=== PATIENT | male | born 1945 | race Caucasian/White ===

== ENCOUNTER 2019-01-08 16:41 | Emergency (ER) | payer MEDICARE, BC ==
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
[2019-01-08] MEDS ORDERED: IBUPROFEN 400 MG TAB PO STA (18:43)
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
[2019-01-08 20:27] VITALS: BP 146/84; PULSE 78; RESP 18; TEMP 97.9
== END 2019-01-08 20:27 | disposition home or self-care (01) ==
LOC: EC 16:41
DX: Z04.1 Encounter for examination and observation following transport accident (principal); M54.5 Low back pain; E11.9 Type 2 diabetes mellitus without complications; Z79.4 Long term (current) use of insulin; Z88.0 Allergy status to penicillin
CPT/HCPCS: 72114; 72131; 99284

== ENCOUNTER 2019-01-21 16:18 | Emergency (ER) | payer OTHER, MEDICARE, BC ==
[2019-01-21 17:35] VITALS: RESP 18
[2019-01-21 18:26] LABS: Basophils % (A) 1 %; Eosinophils # (A) 0.1 k/uL (0-0.7); Eosinophils % (A) 3 %; HCT 42.7 % (39.0-53.0); HGB 13.8 gm/dL (13.0-17.5); Lymphocytes # (A) 1.4 k/uL (1.0-4.8); Lymphocytes % (A) 29 %; MCHC 32.4 g/dL (31.0-37.0); MCV 92.8 fL (80.0-100.0); Mean Platelet Volume 7.5; Monocytes # (A) 0.4 k/uL (0-1.0); Monocytes % (A) 8 %; Neutrophils # (A) 2.8 k/uL (1.3-7.7); Neutrophils % (A) 58 %; Platelet Count 176 k/uL (150-450); WBC 4.8 k/uL (3.8-10.6)
[2019-01-21 18:31] LABS: Albumin 3.9 g/dL (3.5-5.0); Calcium 9.3 mg/dL (8.4-10.2); Potassium 4.1 mmol/L (3.5-5.1); Total Bilirubin 0.6 mg/dL (0.2-1.3); Total Protein 6.4 g/dL (6.3-8.2)
[2019-01-21 18:42] LABS: INR 0.9 (<1.2); Partial Thromboplastin Time 25.9 sec (22.0-30.0); Prothrombin Time 9.9 sec (9.0-12.0)
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
[2019-01-21 21:52] LABS: Appearance,Urine Clear (Clear); Bilirubin,Urine Negative (Negative); Blood,Urine Negative (Negative); Color,Urine Colorless; Glucose,Urine (UA) 1+ (Negative); Ketones,Urine Negative (Negative); Leukocyte Esterase,Urine Negative (Negative); Nitrite,Urine Negative (Negative); PH, Urine 7.5 (5.0-8.0); Protein,Urine Negative (Negative); Specific Gravity,Urine 1.005 (1.001-1.035); Urobilinogen,Urine <2.0 mg/dL (<2.0)
[2019-01-21 22:06] VITALS: BP 144/92; PULSE 72; TEMP 98.7
== END 2019-01-21 22:06 | disposition home or self-care (01) ==
LOC: EC 16:18
DX: R20.2 Paresthesia of skin (principal); M54.5 Low back pain; E11.9 Type 2 diabetes mellitus without complications; Z79.4 Long term (current) use of insulin; Z79.899 Other long term (current) drug therapy; Z88.0 Allergy status to penicillin
CPT/HCPCS: 36415; 70450; 80053; 81003; 83735; 84443; 84484; 85025; 85610; 85730; 93005; 99284

== ENCOUNTER 2019-02-16 09:19 | Emergency (ER) | payer MEDICARE, BC ==
[2019-02-16 09:37] VITALS: RESP 16
--- NOTE | 2019-02-16 09:47 | ED ---
General Adult HPI - General Chief complaint: Recheck/Abnormal Lab/Rx Stated complaint: hypoglycemia Time Seen by Provider: 02/16/19 09:21 Source: patient, EMS, RN notes reviewed Mode of arrival: EMS Limitations: no limitations - History of Present Illness Initial comments: Patient is a pleasant 73-year-old male presenting to the emergency department with hypoglycemia. Onset of symptoms was this morning. Patient has not yet ate anything today. Blood sugar was down to the 40s and patient was confused. EMS provided D50 with repeat blood sugar around 250. Symptoms have resolved. Patient feels fine at this time and has no complaints. No injury. - Related Data Home Medications Medication Instructions Recorded Confirmed Bimatoprost [Lumigan .01% Ophth 1 drop BOTH EYES HS 01/08/19 02/16/19 Soln] Brimonidine Tartrate/Timolol 1 drop BOTH EYES BID 01/08/19 02/16/19 [Combigan 0.2%-0.5% Eye Drops] Dulaglutide [Trulicity] 0.75 mg SQ CASTRO 01/08/19 02/16/19 Insulin Aspart [NovoLOG Flexpen] 14 units SQ AC-SUPPER 01/08/19 02/16/19 Insulin Aspart [Novolog Flexpen] 10 unit SQ AC-BID 01/08/19 02/16/19 Ascorbic Acid [Vitamin C] 500 mg PO DAILY 01/21/19 02/16/19 Cholecalciferol [Vitamin D3 (25 1,000 unit PO DAILY 01/21/19 02/16/19 Mcg = 1000 Iu)] Cinnamon Bark [Cinnamon] 500 mg PO DAILY 01/21/19 02/16/19 Multivitamins, Thera [Multivitamin 1 tab PO DAILY 01/21/19 02/16/19 (formulary)] Naproxen 500 mg PO BID PRN 01/21/19 02/16/19 Zinc 50 mg PO DAILY 01/21/19 02/16/19 Allergies Allergy/AdvReac Type Severity Reaction Status Date / Time Penicillins AdvReac Nausea & Verified 02/16/19 09:35 Vomiting Review of Systems ROS Statement: Those systems with pertinent positive or pertinent negative responses have been documented in the HPI. ROS Other: All systems not noted in ROS Statement are negative. Constitutional: Denies: fever Eyes: Denies: eye pain ENT: Denies: ear pain Respiratory: Denies: cough Cardiovascular: Denies: chest pain Endocrine: Denies: fatigue Gastrointestinal: Denies: abdominal pain Genitourinary: Denies: dysuria Musculoskeletal: Denies: back pain Skin: Denies: rash Neurological: Reports: as per HPI. Denies: headache Past Medical History Past Medical History: Diabetes Mellitus History of Any Multi-Drug Resistant Organisms: None Reported Past Surgical History: Orthopedic Surgery Past Psychological History: No Psychological Hx Reported Smoking Status: Never smoker Past Alcohol Use History: None Reported Past Drug Use History: None Reported General Exam Limitations: no limitations General appearance: alert, in no apparent distress Head exam: Present: atraumatic, normocephalic Eye exam: Present: normal appearance, EOMI, other (Right pupil slightly dilated which patient states is chronic and unchanged.). Absent: nystagmus ENT exam: Present: normal oropharynx Neck exam: Absent: tenderness Respiratory exam: Present: normal lung sounds bilaterally Cardiovascular Exam: Present: regular rate, normal rhythm GI/Abdominal exam: Present: soft. Absent: tenderness Extremities exam: Present: normal inspection. Absent: pedal edema, calf tenderness Neurological exam: Present: alert, oriented X3, CN II-XII intact. Absent: motor sensory deficit Expanded Neurological exam: Present: protecting the airway Patient oriented to: Present: person, place, time Speech: Present: fluid speech Motor strength exam: RUE: 5, LUE: 5, RLE: 5, LLE: 5 Eye Response: (4) open spontaneously Motor Response: (6) obeys commands Verbal Response: (5) oriented Psychiatric exam: Present: normal affect, normal mood Skin exam: Present: normal color Course Vital Signs 02/16/19 02/16/19 09:28 09:41 Pulse Rate 73 73 Respiratory 16 16 Rate Blood Pressure 158/90 158/90 O2 Sat by Pulse 97 97 Oximetry Medical Decision Making - Medical Decision Making Patient reevaluated and resting comfortably in bed. Patient and updated on results and plan. Patient is symptom-free at this time and acting appropriately. Patient did tolerate a meal. Patient states he did take insulin around 2 AM and missed breakfast this morning. Patient states this is exactly what happened last time his blood sugar dropped as well. Patient is advised to check his blood sugar frequently and do close follow-ups primary care physician. - Lab Data Lab Results 06/23/19 Range/Units 10:21 POC Glucose (mg/dL) 185 H (75-99) mg/dL POC Glu Diagnostic Technologist ID Vicki Guillermo Disposition Clinical Impression: Hypoglycemic episode in patient with diabetes mellitus Disposition: HOME SELF-CARE Condition: Stable Instructions (If sedation given, give patient instructions): Hypoglycemia in a Person with Diabetes (ED) Additional Instructions: Please follow-up with primary care physician in the beginning of the week. Please check your blood sugar frequently today and tomorrow, at least 4 times daily. Return for low blood sugar, weakness or confusion, worsening symptoms or other concerns. Is patient prescribed a controlled substance at d/c from ED?: No Referrals: Guillermo Alfaro MD [Primary Care Provider] - 1-2 days Time of Disposition: 11:26
[2019-02-16 10:24] LABS: Glucose,Whole Blood 185 mg/dL (75-99)
[2019-02-16 12:27] LABS: Glucose,Whole Blood 243 mg/dL (75-99)
[2019-02-16 12:34] VITALS: BP 144/87; PULSE 78
== END 2019-02-16 12:25 | disposition home or self-care (01) ==
LOC: EC 09:19
DX: E11.649 Type 2 diabetes mellitus with hypoglycemia without coma (principal); Z79.4 Long term (current) use of insulin; Z79.899 Other long term (current) drug therapy; Z88.0 Allergy status to penicillin
CPT/HCPCS: 36415; 99284

== ENCOUNTER 2023-11-03 12:29 | Emergency (ER) | payer BC, MEDICARE, OTHER ==
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
[2023-11-03] MEDS: DIPH,PERTUS(ACELL)TETVAC-LF 0.5 ML VIAL IM ONE (12:43)
[2023-11-03] MEDS: HYDROmorphone 0.5 MG/0.5 ML SYRINGE IVP STA ×2 (12:43→15:06)
[2023-11-03 12:48] VITALS: RESP 18; TEMP 96.2
[2023-11-03 13:02] LABS: Basophils % (A) 1 %; Eosinophils # (A) 0.1 k/uL (0-0.7); Eosinophils % (A) 2 %; HCT 38.1 % (39.0-53.0); HGB 12.5 gm/dL (13.0-17.5); Lymphocytes % (A) 15 %; MCH 30.9 pg (25.0-35.0); MCV 93.8 fL (80.0-100.0); Mean Platelet Volume 7.6; Monocytes # (A) 0.5 k/uL (0-1.0); Monocytes % (A) 7 %; Neutrophils # (A) 5.1 k/uL (1.3-7.7); Neutrophils % (A) 75 %; Platelet Count 177 k/uL (150-450); RBC 4.06 m/uL (4.30-5.90); RDW 13.4 % (11.5-15.5); WBC 6.8 k/uL (3.8-10.6)
[2023-11-03 13:07] LABS: ALT 26 U/L (4-49); AST 37 U/L (17-59); African American GFR (CKD) 87 (>60 ml/min/1.73 sqM); Albumin 3.5 g/dL (3.5-5.0); Alcohol <10 mg/dL; Alkaline Phosphatase 90 U/L (38-126); Anion Gap 4 mmol/L; Blood Urea Nitrogen 34 mg/dL (9-20); Calcium 8.7 mg/dL (8.4-10.2); Carbon Dioxide 26 mmol/L (22-30); Chloride 110 mmol/L (98-107); Glucose 232 mg/dL (74-99); Non-African American GFR(CKD) 76 (>60 ml/min/1.73 sqM); Potassium 5.3 mmol/L (3.5-5.1); Sodium 140 mmol/L (137-145); Total Bilirubin 0.7 mg/dL (0.2-1.3)
[2023-11-03 13:13] LABS: Prothrombin Time 10.6 sec (10.0-12.5)
[2023-11-03] MEDS: KETOROLAC 15 MG/ML 1 ML VIAL IVP STA (14:03)
[2023-11-03 14:04] LABS: Partial Thromboplastin Time 20.1 sec (22.0-30.0)
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
[2023-11-03] MEDS: ACET/COD 300 MG/30 MG STARTER PACK 6 TAB BTL PO STA (15:04)
[2023-11-03] MEDS: hydrALAZINE HCL 20 MG/ML 1 ML VIAL IVP STA (15:07)
[2023-11-03] MEDS: amLODIPine 5 MG TAB PO STA (15:58)
[2023-11-03 16:24] VITALS: BP 169/90; PULSE 74
== END 2023-11-03 16:13 | disposition home or self-care (01) ==
LOC: EC 12:29
DX: S20.211A Contusion of right front wall of thorax, initial encounter (principal); I10 Essential (primary) hypertension; E11.9 Type 2 diabetes mellitus without complications; I25.2 Old myocardial infarction; Z79.4 Long term (current) use of insulin; Z88.0 Allergy status to penicillin; V89.2XXA Person injured in unspecified motor-vehicle accident, traffic, initial encounter; Y92.410 Unspecified street and highway as the place of occurrence of the external cause
CPT/HCPCS: 36415; 93005; 80053; 84484; 85025; 85610; 85730; 80320; 72125; 70450; 71260; 74177; 90715; 99285; 96374; 96375 ×2; 90471; J0360; J1885; J1170; Q9967

== ENCOUNTER 2023-11-04 11:43 | Observation (INO) | payer OTHER, MEDICARE, BC ==
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
[2023-11-04] MEDS: KETOROLAC 15 MG/ML 1 ML VIAL IVP STA (11:53)
[2023-11-04] MEDS: HYDROmorphone 0.5 MG/0.5 ML SYRINGE IVP STA (11:54)
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
[2023-11-04 13:05] LABS: Basophils % (A) 0 %; Eosinophils # (A) 0.1 k/uL (0-0.7); Eosinophils % (A) 1 %; HCT 34.9 % (39.0-53.0); HGB 11.7 gm/dL (13.0-17.5); Lymphocytes # (A) 0.9 k/uL (1.0-4.8); Lymphocytes % (A) 11 %; MCH 31.3 pg (25.0-35.0); MCHC 33.6 g/dL (31.0-37.0); MCV 93.3 fL (80.0-100.0); Mean Platelet Volume 7.6; Monocytes # (A) 0.7 k/uL (0-1.0); Monocytes % (A) 9 %; Neutrophils # (A) 6.1 k/uL (1.3-7.7); Neutrophils % (A) 77 %; Platelet Count 168 k/uL (150-450); RBC 3.74 m/uL (4.30-5.90); RDW 13.5 % (11.5-15.5); WBC 7.9 k/uL (3.8-10.6)
[2023-11-04 14:05] LABS: ALT 22 U/L (4-49); AST 29 U/L (17-59); African American GFR (CKD) >90 (>60 ml/min/1.73 sqM); Albumin 3.2 g/dL (3.5-5.0); Alkaline Phosphatase 82 U/L (38-126); Anion Gap 6 mmol/L; Blood Urea Nitrogen 29 mg/dL (9-20); Calcium 8.3 mg/dL (8.4-10.2); Carbon Dioxide 24 mmol/L (22-30); Chloride 106 mmol/L (98-107); Glucose 250 mg/dL (74-99); Non-African American GFR(CKD) 82 (>60 ml/min/1.73 sqM); Potassium 4.2 mmol/L (3.5-5.1); Sodium 136 mmol/L (137-145); Total Bilirubin 0.6 mg/dL (0.2-1.3); Total Protein 5.6 g/dL (6.3-8.2)
[2023-11-04] MEDS: SODIUM CHLORIDE 0.9% 1,000 ML IV ONE (14:27)
[2023-11-04] MEDS: KETOROLAC 15 MG/ML 1 ML VIAL IVP SCH (19:05)
[2023-11-04 20:08] LABS: Glucose,Whole Blood 327 mg/dL (70-110)
[2023-11-04] MEDS ORDERED: HYDROmorphone 1 MG/ML 1 ML SYRINGE IM PRN (20:25)
[2023-11-04] MEDS: INSULIN ASPART (NovoLOG) 100 UNIT/ML VIAL SQ SCH (23:41)
[2023-11-05] MEDS: HYDROmorphone 0.5 MG/0.5 ML SYRINGE IVP PRN (05:00)
[2023-11-05 05:51] LABS: Glucose,Whole Blood 98 mg/dL (70-110)
[2023-11-05] MEDS ORDERED: HYDROcodone/APAP 5-325MG 1 EACH TAB PO PRN (08:02)
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
[2023-11-05] MEDS: DORZOLAMIDE-TIMOLOL 2.23%/0.68 10ML BTL BOTH EYES SCH (09:18)
[2023-11-05] MEDS: lisinopriL 5 MG TAB PO SCH (09:18)
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
--- NOTE | 2023-11-05 11:09 | CA ---
Transthoracic Echo Report Name: Shin Still Age: 77 Gender: M : 1945 Exam Date: 11/05/2023 07:17 Exam Location: [facility] Ht (in): 70 Wt (lb): 160 Ordering Physician: Flory Lugo Attending/Referring Phys: [id number], [employer] Spot [employer] Jackie Huitron RDCS Procedure CPT: Indications: rule out pericardial effusion, hematoma Cardiac Hx: Technical Quality: Good Contrast 1: Total Dose (mL): Contrast 2: Total Dose (mL): MEASUREMENTS (Male / Female) Normal Values 2D ECHO LV Diastolic Diameter PLAX 4.7 cm 4.2 - 5.9 / 3.9 - 5.3 cm LV Systolic Diameter PLAX 2.8 cm IVS Diastolic Thickness 1.1 cm 0.6 - 1.0 / 0.6 - 0.9 cm LVPW Diastolic Thickness 1.1 cm 0.6 - 1.0 / 0.6 - 0.9 cm LV Relative Wall Thickness 0.5 RV Internal Dim ED PLAX 2.9 cm LA Systolic Diameter LX 3.7 cm 3.0 - 4.0 / 2.7 - 3.8 cm LV Diastolic Volume MOD 4C 113.5 cm??? LV Systolic Volume MOD 4C 48.4 cm??? LV Ejection Fraction MOD 4C 57.3 % LV Cardiac Index MOD 4C 3092.3 cm???/min???m??? LV Diastolic Length 4C 8.5 cm LV Systolic Length 4C 7.3 cm LV Diastolic Volume MOD 2C 105.6 cm??? LV Systolic Volume MOD 2C 50.4 cm??? LV Ejection Fraction MOD 2C 52.2 % LV Cardiac Index MOD 2C 2619.7 cm???/min???m??? LV Diastolic Length 2C 8.8 cm LV Systolic Length 2C 7.5 cm LA Volume 41.6 cm??? 18 - 58 / 22 - 52 cm??? LA Volume Index 21.9 cm???/m??? 16 - 28 cm???/m??? M-MODE Aortic Root Diameter MM 4.3 cm AV Cusp Separation MM 2.7 cm DOPPLER AV Peak Velocity 112.2 cm/s AV Peak Gradient 5.0 mmHg MV Area PHT 2.8 cm??? Mitral E Point Velocity 63.2 cm/s Mitral A Point Velocity 113.8 cm/s Mitral E to A Ratio 0.6 MV Deceleration Time 275.0 ms FINDINGS Left Ventricle Left ventricular ejection fraction is estimated at .65-70% Left ventricular cavity size normal. Left ventricular wall thickness normal. Normal left ventricular wall motion. Right Ventricle Normal right ventricular size. Unable to estimate the right ventricular systolic pressure. Right Atrium Normal right atrial size. Left Atrium Normal left atrial size. Mitral Valve Structurally normal mitral valve. No mitral stenosis, regurgitation or prolapse. Aortic Valve Trileaflet aortic valve. No aortic valve stenosis or regurgitation. Tricuspid Valve Structurally normal tricuspid valve. No tricuspid stenosis, regurgitation or prolapse. Pulmonic Valve Pulmonic valve not well visualized. No pulmonic regurgitation. Pericardium No pericardial effusion. Aorta Moderate aortic dilatation at the level of the sinuses of valsalva 43 mm CONCLUSIONS Hyperdynamic left ventricle with an EF between 65-70% and almost cavity obliteration Significant valvular abnormalities noted No pericardial effusion Unable to determine the RV systolic pressure Previewed by: Dr. Joseph Villanueva MD (Electronically Signed) Final Date: 05 November 2023 11:08
[2023-11-05 11:15] LABS: Glucose,Whole Blood 340 mg/dL (70-110)
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
[2023-11-05] MEDS: FAMOTIDINE 20 MG TAB PO SCH (12:26)
[2023-11-05] MEDS: HEPARIN SODIUM,PORCINE 5,000 UNIT/ML 1 ML VIAL SQ SCH (12:26)
[2023-11-05 16:09] LABS: Glucose,Whole Blood 108 mg/dL (70-110)
[2023-11-05 19:24] LABS: Glucose,Whole Blood 274 mg/dL (70-110)
[2023-11-05 21:07] LABS: Glucose,Whole Blood 279 mg/dL (70-110)
[2023-11-05] MEDS: ATORVASTATIN 20 MG TAB PO SCH (21:07)
[2023-11-05] MEDS: LATANOPROST 0.005% OPHTH DROPS 2.5 ML BTL BOTH EYES SCH (22:14)
[2023-11-05] MEDS ORDERED: INSULIN ASPART (NovoLOG) 100 UNIT/ML VIAL SQ SCH (22:24)
[2023-11-06 05:25] LABS: Glucose,Whole Blood 113 mg/dL (70-110)
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
[2023-11-06 08:10] VITALS: BP 155/78; PULSE 80; RESP 18; TEMP 98.3
[2023-11-06] MEDS: INSULIN DETEMIR (LEVEMIR) 100 UNIT/ML SYR SQ SCH (09:32)
[2023-11-06 11:21] LABS: Glucose,Whole Blood 180 mg/dL (70-110)
[2023-11-06] MEDS ORDERED: KETOROLAC 15 MG/ML 1 ML VIAL IVP PRN (11:33)
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
[2023-11-06] MEDS: LIDOCAINE 4% PATCH TOPICAL SCH (12:54)
[2023-11-06 16:29] LABS: Glucose,Whole Blood 121 mg/dL (70-110)
== END 2023-11-06 18:01 | disposition home or self-care (01) ==
LOC: EC 11:43 → 4SSUR 14:07
PROVIDERS: ADMIT Surgery; ATTEND Surgery
DX: S22.22XA Fracture of body of sternum, initial encounter for closed fracture (principal); S32.019A Unspecified fracture of first lumbar vertebra, initial encounter for closed fracture; S32.029A Unspecified fracture of second lumbar vertebra, initial encounter for closed fracture; S32.039A Unspecified fracture of third lumbar vertebra, initial encounter for closed fracture; S32.049A Unspecified fracture of fourth lumbar vertebra, initial encounter for closed fracture; V43.52XA Car driver injured in collision with other type car in traffic accident, initial encounter; E11.9 Type 2 diabetes mellitus without complications; I10 Essential (primary) hypertension; E78.5 Hyperlipidemia, unspecified; Z79.899 Other long term (current) drug therapy; Z79.4 Long term (current) use of insulin; Z79.84 Long term (current) use of oral hypoglycemic drugs; Z88.0 Allergy status to penicillin
CPT/HCPCS: 96376 ×3; 96372 ×2; 96361; 96374; 96375; 99285; 36415; 93005; 93306; 97162; 97166; 80053; 84484; 85025; 71101; 71120; G0378 ×3; G0390; J1644 ×2; J1885 ×3; J1170 ×2

== ENCOUNTER → 2023-12-18 | Outpatient (CLI) | payer OTHER, MEDICARE, BC ==
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
== END | disposition home or self-care (01) ==
LOC: RADXRMAIN 12:17
PROVIDERS: ATTEND Family Medicine
DX: S22.22XA Fracture of body of sternum, initial encounter for closed fracture (principal); S39.92XD Unspecified injury of lower back, subsequent encounter
CPT/HCPCS: 71120; 72100

== ENCOUNTER 2024-02-12 02:00 | Emergency (ER) | payer BC, OTHER ==
[2024-02-12 02:08] VITALS: TEMP 98.3
[2024-02-12 02:25] LABS: Glucose,Whole Blood 510 mg/dL (70-110)
[2024-02-12] MEDS: ACETAMINOPHEN TAB 500 MG TAB PO STA (02:37)
[2024-02-12] MEDS: SODIUM CHLORIDE 0.9% 1,000 ML IV ONE (02:40)
[2024-02-12 02:52] LABS: VBG PH 7.48 (7.31-7.41)
[2024-02-12 03:03] LABS: Basophils % (A) 0 %; Eosinophils # (A) 0.1 k/uL (0-0.7); Eosinophils % (A) 2 %; HCT 37.7 % (39.0-53.0); HGB 11.7 gm/dL (13.0-17.5); Lymphocytes # (A) 0.8 k/uL (1.0-4.8); Lymphocytes % (A) 17 %; MCH 29.8 pg (25.0-35.0); MCHC 31.1 g/dL (31.0-37.0); MCV 95.6 fL (80.0-100.0); Mean Platelet Volume 8.1; Monocytes # (A) 0.4 k/uL (0-1.0); Monocytes % (A) 8 %; Neutrophils # (A) 3.3 k/uL (1.3-7.7); Neutrophils % (A) 70 %; Platelet Count 186 k/uL (150-450); RBC 3.95 m/uL (4.30-5.90); RDW 12.9 % (11.5-15.5); WBC 4.8 k/uL (3.8-10.6)
[2024-02-12 03:09] LABS: INR 0.9 (<1.2); Partial Thromboplastin Time 21.9 sec (22.0-30.0)
[2024-02-12 03:30] LABS: ALT 17 U/L (4-49); AST 19 U/L (17-59); African American GFR (CKD) 90 (>60 ml/min/1.73 sqM); Albumin 3.4 g/dL (3.5-5.0); Alkaline Phosphatase 189 U/L (38-126); Anion Gap 5 mmol/L; Blood Urea Nitrogen 28 mg/dL (9-20); Calcium 8.6 mg/dL (8.4-10.2); Carbon Dioxide 24 mmol/L (22-30); Chloride 105 mmol/L (98-107); Non-African American GFR(CKD) 78 (>60 ml/min/1.73 sqM); Potassium 4.6 mmol/L (3.5-5.1); Sodium 134 mmol/L (137-145); Total Bilirubin 0.4 mg/dL (0.2-1.3); Total Protein 5.8 g/dL (6.3-8.2)
[2024-02-12 03:41] LABS: Glucose 528 mg/dL (74-99)
--- NOTE | 2024-02-12 03:42 | ED ---
General Adult HPI - General Chief complaint: Fall Stated complaint: fall Time Seen by Provider: 02/12/24 02:15 Source: patient, EMS, RN notes reviewed, old records reviewed Mode of arrival: EMS Limitations: no limitations - History of Present Illness Initial comments: Is a 78-year-old male presents emergency department after a fall. States he awoke this morning and stood up too quickly as he does have a history of orthostatic hypotension. States he felt lightheaded and fell onto the ground. Landed on his right side. Complaining of right knee and right shoulder pain. Denies hitting his head. Denies loss consciousness. Is not on blood thinners. Patient does have a history of diabetes. States he is compliant with medications. Patient was found to be hyperglycemic. Presents for further evaluation at this time. Denies any abdominal pain, chest pain, shortness of breath. No other obvious injuries. - Related Data Home Medications Medication Instructions Recorded Confirmed Ammonium Lactate Lotion 1 applic TOPICAL DAILY PRN 11/04/23 11/04/23 [Lac-Hydrin 12% Lotion] Atorvastatin [Lipitor] 20 mg PO HS 11/04/23 11/04/23 Dorzolamide-Timol 2.23%/0.68% 1 drop BOTH EYES BID 11/04/23 11/04/23 [Cosopt] Insulin Degludec [Tresiba 24 units SQ DAILY 11/04/23 11/04/23 Flextouch U-200 Pen] Ketorolac [Toradol] 10 mg PO Q6HR PRN 11/04/23 11/04/23 Latanoprost [Latanoprost 0.005%] 1 drop BOTH EYES HS 11/04/23 11/04/23 lisinopriL [Zestril] 5 mg PO DAILY 11/04/23 11/04/23 metFORMIN HCL [Glucophage] 1,000 mg PO DAILY 11/04/23 11/04/23 Previous Rx's Medication Instructions Recorded Acetaminophen Tab [Tylenol] 1,000 mg PO Q6HR PRN #30 tablet 11/06/23 Lidocaine 5% Patch [Lidoderm] 1 patch TOPICAL DAILY #3 patch 11/06/23 Allergies Allergy/AdvReac Type Severity Reaction Status Date / Time Penicillins AdvReac Nausea & Verified 02/12/24 02:08 Vomiting Review of Systems ROS Statement: Those systems with pertinent positive or pertinent negative responses have been documented in the HPI. Review of Systems: CONST: Denies fever EYES: Denies blurry vision ENT: Denies nasal congestion C/V: Denies Chest pain RESP: Denies shortness of breath GI: Denies abdominal pain : Denies dysuria SKIN: Denies rash. MSK: Endorses right shoulder pain, right knee pain. NEURO: Denies headache ROS Other: All systems not noted in ROS Statement are negative. Past Medical History Past Medical History: Diabetes Mellitus, Hyperlipidemia, Hypertension Additional Past Medical History / Comment(s): R eye blindness (2016) History of Any Multi-Drug Resistant Organisms: None Reported Past Surgical History: Orthopedic Surgery Past Psychological History: No Psychological Hx Reported Smoking Status: Never smoker Past Alcohol Use History: None Reported Past Drug Use History: None Reported General Exam - General Exam Comments Initial Comments: General: Appears in no acute distress. HEAD: Normal with no signs of head trauma. Negative Singh sign. Negative raccoon eyes. EYES: PERRLA, EOMI, conjunctiva normal, no discharge. Pupils are 3 mm and equal bilaterally. ENT: Hearing grossly intact, normal oropharynx. RESPIRATORY: Clear breath sounds bilaterally. No wheezes, rales, or rhonchi. C/V: Regular rate and rhythm. S1 and S2 auscultated, no edema, peripheral pulses 2+ and intact throughout ABD: Abd is soft, nontender, nondistended EXT: Normal range of motion, no obvious deformity. Tenderness to palpation of t he right shoulder as well as right knee. Tenderness with movement of both as well. No obvious deformities. No midline spinal tenderness to palpation. Pelvis is stable. SKIN: No rashes or lesions observed on exposed skin. NEURO: Alert and oriented x 4. Is a 15. Limitations: no limitations Course Vital Signs 02/12/24 02/12/24 02:01 05:09 Temperature 98.3 F Pulse Rate 80 74 Respiratory 16 18 Rate Blood Pressure 172/87 172/87 O2 Sat by Pulse 97 97 Oximetry Medical Decision Making - Medical Decision Making Was pt. sent in by a medical professional or institution (, PA, PHARMACY TECHNICIAN PER DIEM, urgent care, hospital, or retirement...) When possible be specific @ -No Did you speak to anyone other than the patient for history (EMS, parent, family, police, friend...)? What history was obtained from this source @ -No Did you review nursing and triage notes (agree or disagree)? Why? @ -I reviewed and agree with nursing and triage notes Were old charts reviewed (outside hosp., previous admission, EMS record, old EKG, old radiological studies, urgent care reports/EKG's, retirement records)? Report findings @ -No old charts were reviewed Differential Diagnosis (chest pain, altered mental status, abdominal pain women, abdominal pain men, vaginal bleeding, weakness, fever, dyspnea, syncope, headache, dizziness, GI bleed, back pain, seizure, CVA, palpatations, mental health, musculoskeletal)? @ -Differential Musculoskeletal Muscular strain, contusion, ligament sprain, fracture, arthritis, septic arthritis, bursitis, cellulitis, muscle spasm, nerve compression, DVT, arterial occlusion, herpes zoster, electrolyte abnormality, tumor.... This is not meant to be in all inclusive list EKG interpreted by me (3pts min.). @ -As above X-rays interpreted by me (1pt min.). @ -Chest, pelvis, shoulder, knee x-rays negative for any obvious traumatic injury. CT interpreted by me (1pt min.). @ -CT brain negative for any obvious traumatic injury. U/S interpreted by me (1pt. min.). @ -None done What testing was considered but not performed or refused? (CT, X-rays, U/S, labs)? Why? @ -None What meds were considered but not given or refused? Why? @ -None Did you discuss the management of the patient with other professionals (professionals i.e. , PA, PHARMACY TECHNICIAN PER DIEM, lab, RT, psych nurse, social sciences research scientist, wire spinner, teacher, safety security officer, counter caser)? Give summary @ -No Was smoking cessation discussed for >3mins.? @ -No Was critical care preformed (if so, how long)? @ -No Were there social determinants of health that impacted care today? How? (Homelessness, low income, unemployed, alcoholism, drug addiction, transportatio n, low edu. Level, literacy, decrease access to med. care, residential, rehab)? @ -No Was there de-escalation of care discussed even if they declined (Discuss DNR or withdrawal of care, Hospice)? DNR status @ -No What co-morbidities impacted this encounter? (DM, HTN, Smoking, COPD, CAD, Cancer, CVA, ARF, Chemo, Hep., AIDS, mental health diagnosis, sleep apnea, morbid obesity)? @ -None Was patient admitted / discharged? Hospital course, mention meds given and route, prescriptions, significant lab abnormalities, going to OR and other pertinent info. @ -Patient presents after a fall. Seems to be mechanical or orthostatic hypotensive in nature. Currently only symptoms are pain in the right shoulder and right knee. Does not meet trauma activation criteria. Will obtain CT brain due to the patient's age as well as x-rays of the right shoulder, knee, pelvis and chest. Basic labs also be obtained as patient is hyperglycemic. He was in agreement this plan. He will receive a 1 L fluid bolus as well as Tylenol for analgesia. Imaging negative for any obvious traumatic injury. Laboratory studies remarkable for hyperglycemia but no evidence of DKA. On reevaluation, we will readminister insulin at this time. I updated the patient. He was in agreement this plan. He is resting comfortably at this time. Repeat Accu-Chek shows improvement of sugars at 350. I believe it is safe for him to be discharged home. He was in agreement this plan. Remains asymptomatic. He will be given a sling for his right shoulder. I instructed the patient to follow up with their PCP in the next 1-3 days. I explained that the patient should return to the emergency department if they experience any worsening symptoms. Strict return precautions were discussed with the patient. The patient expressed understanding of these instructions. I answered all questions that the patient had. The patient was discharged home in good condition with their prescriptions and follow up information. Undiagnosed new problem with uncertain prognosis? @ -No Drug Therapy requiring intensive monitoring for toxicity (Heparin, Nitro, Insulin, Cardizem)? @ -No Were any procedures done? @ -No Diagnosis/symptom? @ -Fall, hyperglycemia, right shoulder strain, right knee sprain Acute, or Chronic, or Acute on Chronic? @ -Acute Uncomplicated (without systemic symptoms) or Complicated (systemic symptoms)? @ -Uncomplicated Side effects of treatment? @ -None Exacerbation, Progression, or Severe Exacerbation] @ -No Poses a threat to life or bodily function? @ -No - Lab Data Result diagrams: 02/12/24 02:20 02/12/24 02:20 Lab Results 02/12/24 02/12/24 02/12/24 Range/Units 02:13 02:20 02:20 WBC 4.8 (3.8-10.6) k/uL RBC 3.95 L (4.30-5.90) m/uL Hgb 11.7 L (13.0-17.5) gm/dL Hct 37.7 L (39.0-53.0) % MCV 95.6 (80.0-100.0) fL MCH 29.8 (25.0-35.0) pg MCHC 31.1 (31.0-37.0) g/dL RDW 12.9 (11.5-15.5) % Plt Count 186 (150-450) k/uL MPV 8.1 Neutrophils % 70 % Lymphocytes % 17 % Monocytes % 8 % Eosinophils % 2 % Basophils % 0 % Neutrophils # 3.3 (1.3-7.7) k/uL Lymphocytes # 0.8 L (1.0-4.8) k/uL Monocytes # 0.4 (0-1.0) k/uL Eosinophils # 0.1 (0-0.7) k/uL Basophils # 0.0 (0-0.2) k/uL PT 10.0 (10.0-12.5) sec INR 0.9 (<1.2) APTT 21.9 L (22.0-30.0) sec VBG pH (7.31-7.41) VBG pCO2 (37-51) mmHg VBG HCO3 (24-28) mmol/L Sodium (137-145) mmol/L Potassium (3.5-5.1) mmol/L Chloride (98-107) mmol/L Carbon Dioxide (22-30) mmol/L Anion Gap mmol/L BUN (9-20) mg/dL Creatinine (0.66-1.25) mg/dL Est GFR (CKD-EPI)AfAm (>60 ml/min/1.73 sqM) Est GFR (CKD-EPI)NonAf (>60 ml/min/1.73 sqM) Glucose (74-99) mg/dL POC Glucose (mg/dL) 510 H* (70-110) mg/dL POC Glu Cast Iron Drain Pipe Layer ID Nargis, Marianna Calcium (8.4-10.2) mg/dL Total Bilirubin (0.2-1.3) mg/dL AST (17-59) U/L ALT (4-49) U/L Alkaline Phosphatase (38-126) U/L Total Protein (6.3-8.2) g/dL Albumin (3.5-5.0) g/dL Acetone, Qual (Negative) 02/12/24 02/12/24 02/12/24 Range/Units 02:20 02:20 06:05 WBC (3.8-10.6) k/uL RBC (4.30-5.90) m/uL Hgb (13.0-17.5) gm/dL Hct (39.0-53.0) % MCV (80.0-100.0) fL MCH (25.0-35.0) pg MCHC (31.0-37.0) g/dL RDW (11.5-15.5) % Plt Count (150-450) k/uL MPV Neutrophils % % Lymphocytes % % Monocytes % % Eosinophils % % Basophils % % Neutrophils # (1.3-7.7) k/uL Lymphocytes # (1.0-4.8) k/uL Monocytes # (0-1.0) k/uL Eosinophils # (0-0.7) k/uL Basophils # (0-0.2) k/uL PT (10.0-12.5) sec INR (<1.2) APTT (22.0-30.0) sec VBG pH 7.48 H (7.31-7.41) VBG pCO2 31 L (37-51) mmHg VBG HCO3 23 L (24-28) mmol/L Sodium 134 L (137-145) mmol/L Potassium 4.6 (3.5-5.1) mmol/L Chloride 105 (98-107) mmol/L Carbon Dioxide 24 (22-30) mmol/L Anion Gap 5 mmol/L BUN 28 H (9-20) mg/dL Creatinine 0.94 (0.66-1.25) mg/dL Est GFR (CKD-EPI)AfAm 90 (>60 ml/min/1.73 sqM) Est GFR (CKD-EPI)NonAf 78 (>60 ml/min/1.73 sqM) Glucose 528 H* (74-99) mg/dL POC Glucose (mg/dL) 356 H (70-110) mg/dL POC Glu Cast Iron Drain Pipe Layer ID Amanda Mae Calcium 8.6 (8.4-10.2) mg/dL Total Bilirubin 0.4 (0.2-1.3) mg/dL AST 19 (17-59) U/L ALT 17 (4-49) U/L Alkaline Phosphatase 189 H (38-126) U/L Total Protein 5.8 L (6.3-8.2) g/dL Albumin 3.4 L (3.5-5.0) g/dL Acetone, Qual Negative (Negative) - EKG Data -: EKG Interpreted by Me EKG Comments: 12-lead Electrocardiogram Interpretation Note EKG was reviewed and interpreted by myself. 12-lead ECG performed at 0225 is interpreted by me as revealing normal sinus rhythm at a rate of 8 0 beats per minute. Chappell is normal. ME interval is 167 ms, QRS duration is 96 ms, QTc is 414 ms.. There were no ST or T wave abnormalities to suggest myocardial ischemia or injury. R wave progression across the precordium was satisfactory. By my interpretation this EKG is non-diagnostic for acute ischemia. Disposition Clinical Impression: Fall, Shoulder sprain, Knee sprain, Hyperglycemia Disposition: HOME SELF-CARE Condition: Good Instructions (If sedation given, give patient instructions): Fall Prevention for Older Adults (ED) Is patient prescribed a controlled substance at d/c from ED?: No Referrals: None,Stated [Primary Care Provider] - 1-2 days Time of Disposition: 06:16
--- NOTE | 2024-02-12 04:32 | CT ---
EXAM: CT Head Without Intravenous Contrast CLINICAL HISTORY: ITS.REASON CT Reason: fall TECHNIQUE: Axial computed tomography images of the head/brain without intravenous contrast. CTDI is 49.2 mGy and DLP is 1125.4 mGy-cm. This CT exam was performed using one or more of the following dose reduction techniques: automated exposure control, adjustment of the mA and/or kV according to patient size, and/or use of iterative reconstruction technique. COMPARISON: No relevant prior studies available. FINDINGS: Brain: No hemorrhage, herniation, or mass effect. Chronic microvascular ischemic changes. Ventricles: No hydrocephalus. Age related cerebral volume loss. Bones/joints: Unremarkable. Soft tissues: Unremarkable. Sinuses: No air fluid levels. Severe left maxillary sinus mucosal thickening Mastoid air cells: Clear. IMPRESSION: No acute hemorrhage, hydrocephalus, or mass effect.
--- NOTE | 2024-02-12 05:05 | XR ---
EXAM: XR Pelvis, 1 or 2 Views CLINICAL HISTORY: ITS.REASON XR Reason: fall TECHNIQUE: Frontal view of the pelvis. COMPARISON: No relevant prior studies available. FINDINGS: Bones/joints: Multilevel posterior lumbosacral fusion hardware. Osseous demineralization. No acute fracture or subluxation. Soft tissues: Unremarkable. IMPRESSION: No acute fracture or subluxation.
--- NOTE | 2024-02-12 05:06 | XR ---
EXAM: XR Chest, 1 View CLINICAL HISTORY: ITS.REASON XR Reason: fall, pain TECHNIQUE: Frontal view of the chest. COMPARISON: No relevant prior studies available. FINDINGS: Lungs: Unremarkable. No pneumonia. Pleural space: Unremarkable. No pneumothorax. Heart: Unremarkable. No cardiomegaly. Mediastinum: Unremarkable. Normal mediastinal contour. Bones/joints: Unremarkable. No acute fracture. IMPRESSION: Normal chest x-ray.
--- NOTE | 2024-02-12 05:10 | XR ---
EXAM: XR Right Knee, 3 Views CLINICAL HISTORY: [email or web address].REASON XR Reason: fall, pain TECHNIQUE: Three views of the right knee. COMPARISON: No relevant prior studies available. FINDINGS: Bones/joints: Osseous demineralization. No fracture or dislocation. Soft tissues: Unremarkable. IMPRESSION: No fracture or dislocation.
--- NOTE | 2024-02-12 05:10 | XR ---
EXAM: XR Right Shoulder Complete, 2 or More Views CLINICAL HISTORY: ITS.REASON XR Reason: fall, pain TECHNIQUE: Two or more views of the right shoulder. COMPARISON: No relevant prior studies available. FINDINGS: Bones/joints: Osseous demineralization. Moderate degenerative changes of the acromioclavicular joint. No fracture or subluxation. Soft tissues: Unremarkable. IMPRESSION: No acute findings in the right shoulder.
[2024-02-12 05:12] VITALS: RESP 18
[2024-02-12] MEDS: INSULIN ASPART (NovoLOG) 100 UNIT/ML VIAL SQ ONE (05:13)
[2024-02-12 06:06] LABS: Glucose,Whole Blood 356 mg/dL (70-110)
[2024-02-12 06:27] VITALS: BP 155/86; PULSE 76
== END 2024-02-12 06:46 | disposition home or self-care (01) ==
LOC: EC 02:00
DX: S43.401A Unspecified sprain of right shoulder joint, initial encounter (principal); S83.91XA Sprain of unspecified site of right knee, initial encounter; R73.9 Hyperglycemia, unspecified; Z88.0 Allergy status to penicillin; W19.XXXA Unspecified fall, initial encounter
CPT/HCPCS: 36415; 70450; 71045; 72170; 80053; 82009; 82803; 85025; 85610; 85730; 96360; 99285

== ENCOUNTER 2024-04-26 17:50 | Observation (INO) | payer MEDICARE, BC ==
[2024-04-26 18:06] LABS: Glucose,Whole Blood 367 mg/dL (70-110)
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
[2024-04-26 19:37] LABS: Glucose,Whole Blood 375 mg/dL (70-110)
[2024-04-26 20:23] LABS: Basophils % (A) 1 %; Eosinophils # (A) 0.1 k/uL (0-0.7); Eosinophils % (A) 2 %; HGB 11.3 gm/dL (13.0-17.5); Lymphocytes # (A) 0.9 k/uL (1.0-4.8); Lymphocytes % (A) 18 %; MCH 29.8 pg (25.0-35.0); MCHC 32.3 g/dL (31.0-37.0); MCV 92.2 fL (80.0-100.0); Mean Platelet Volume 7.5; Monocytes # (A) 0.3 k/uL (0-1.0); Monocytes % (A) 7 %; Neutrophils # (A) 3.3 k/uL (1.3-7.7); Neutrophils % (A) 70 %; Platelet Count 182 k/uL (150-450); WBC 4.7 k/uL (3.8-10.6)
[2024-04-26 20:39] LABS: ALT 26 U/L (4-49); AST 21 U/L (17-59); African American GFR (CKD) 71 (>60 ml/min/1.73 sqM); Albumin 3.2 g/dL (3.5-5.0); Alkaline Phosphatase 140 U/L (38-126); Anion Gap 6 mmol/L; Blood Urea Nitrogen 26 mg/dL (9-20); Calcium 8.7 mg/dL (8.4-10.2); Carbon Dioxide 26 mmol/L (22-30); Chloride 105 mmol/L (98-107); Glucose 391 mg/dL (74-99); Non-African American GFR(CKD) 61 (>60 ml/min/1.73 sqM); Potassium 4.4 mmol/L (3.5-5.1); Sodium 137 mmol/L (137-145); Total Bilirubin 0.4 mg/dL (0.2-1.3); Total Protein 5.3 g/dL (6.3-8.2)
[2024-04-26] MEDS: SODIUM CHLORIDE 0.9% 1,000 ML IV ONE ×2 (22:01→22:03)
[2024-04-26 23:14] LABS: Appearance,Urine Clear (Clear); Bilirubin,Urine Negative (Negative); Blood,Urine Negative (Negative); Color,Urine Colorless; Glucose,Urine (UA) 4+ (Negative); Ketones,Urine Negative (Negative); Leukocyte Esterase,Urine Negative (Negative); Nitrite,Urine Negative (Negative); Protein,Urine Negative (Negative); Specific Gravity,Urine 1.024 (1.001-1.035); Urobilinogen,Urine <2.0 mg/dL (<2.0)
[2024-04-27] MEDS ORDERED: CALCIUM CARBONATE 500 MG CHEWABLE PO PRN (00:01)
[2024-04-27] MEDS ORDERED: MAG HYDROX/AL HYDROX/SIMETH 30 ML CUP PO PRN (00:01)
[2024-04-27] MEDS ORDERED: NALOXONE 0.4 MG/ML 1 ML VIAL IV PRN (00:01)
[2024-04-27] MEDS ORDERED: ACETAMINOPHEN TAB 325 MG TAB PO PRN (00:01)
[2024-04-27] MEDS ORDERED: DEXTROSE 50% SYRINGE 50 ML IVP PRN ×2 (00:07)
[2024-04-27 00:39] LABS: Glucose,Whole Blood 288 mg/dL (70-110)
[2024-04-27 03:53] LABS: VBG PH 7.33 (7.31-7.41)
[2024-04-27 05:19] LABS: Glucose,Whole Blood 216 mg/dL (70-110)
[2024-04-27] MEDS: INSULIN DETEMIR (LEVEMIR) 100 UNIT/ML SYR SQ SCH (06:23)
[2024-04-27] MEDS: INSULIN ASPART (NovoLOG) 100 UNIT/ML VIAL SQ SCH (06:23)
[2024-04-27] MEDS: FAMOTIDINE 20 MG TAB PO SCH (08:34)
[2024-04-27 11:51] LABS: Glucose,Whole Blood 198 mg/dL (70-110)
[2024-04-27 15:27] VITALS: BP 116/72; PULSE 78; RESP 16; TEMP 97.6
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
== END 2024-04-27 17:16 | disposition home or self-care (01) ==
LOC: EC 17:50 → 6NMEDSUR 04-27 00:09
PROVIDERS: ADMIT Internal Medicine; ATTEND Internal Medicine
DX: E11.65 Type 2 diabetes mellitus with hyperglycemia (principal); E78.5 Hyperlipidemia, unspecified; H54.61 Unqualified visual loss, right eye, normal vision left eye; I10 Essential (primary) hypertension; Z79.4 Long term (current) use of insulin; Z79.84 Long term (current) use of oral hypoglycemic drugs; Z79.899 Other long term (current) drug therapy; Z88.0 Allergy status to penicillin
CPT/HCPCS: 36415; 80053; 81003; 82009; 82803; 85025; 93005; 96360; 96361; 99284

== ENCOUNTER 2024-08-04 16:02 | Emergency (ER) | payer BC, MEDICARE, SELFPAY ==
[2024-08-04 16:12] VITALS: TEMP 98
--- NOTE | 2024-08-04 17:10 | ED ---
General Adult HPI - General Chief complaint: Extremity Problem,Nontraumatic Stated complaint: L shoulder pain Time Seen by Provider: 08/04/24 16:20 Source: patient, EMS, RN notes reviewed Mode of arrival: EMS - History of Present Illness Initial comments: This is a 78-year-old male presenting to the emergency room with his for chief complaint of left shoulder pain. Patient states that yesterday he began to experience left shoulder pain with radiation into his neck described as a heaviness type sensation. States that the pain is exacerbated with range of motion. He denies any recent falls or injuries to the left shoulder. He denies anterior chest pain, heart palpitations, shortness of breath, difficulty breathing, lower extremity edema. Patient experienced a fall approximately 4 months ago injuring his right shoulder and states that the pain in her left shoulder is feeling similar to when he had injury to his right shoulder. Denies history of CA, CVA, denies blood thinner use. - Related Data Home Medications Medication Instructions Recorded Confirmed Atorvastatin [Lipitor] 20 mg PO HS 11/04/23 04/27/24 Dorzolamide-Timol 2.23%/0.68% 1 drop BOTH EYES BID 11/04/23 04/27/24 [Cosopt] Insulin Degludec [Tresiba 32 units SQ DAILY 11/04/23 04/27/24 Flextouch U-200 Pen] Latanoprost [Latanoprost 0.005%] 1 drop BOTH EYES HS 11/04/23 04/27/24 Omeprazole 40 mg PO DAILY 04/27/24 04/27/24 Pioglitazone [Actos] 15 mg PO DAILY 04/27/24 04/27/24 metFORMIN HCL [Glucophage] 500 mg PO BID 04/27/24 04/27/24 Allergies Allergy/AdvReac Type Severity Reaction Status Date / Time Penicillins AdvReac Nausea & Verified 08/04/24 16:12 Vomiting Review of Systems ROS Statement: Those systems with pertinent positive or pertinent negative responses have been documented in the HPI. ROS Other: All systems not noted in ROS Statement are negative. Past Medical History Past Medical History: Diabetes Mellitus, Hyperlipidemia, Hypertension Additional Past Medical History / Comment(s): R eye blindness (2016) History of Any Multi-Drug Resistant Organisms: None Reported Past Surgical History: Orthopedic Surgery Past Psychological History: No Psychological Hx Reported Smoking Status: Never smoker Past Alcohol Use History: None Reported Past Drug Use History: None Reported General Exam General appearance: alert, in no apparent distress Eye exam: Present: normal appearance, PERRL, EOMI. Absent: scleral icterus, conjunctival injection, periorbital swelling ENT exam: Present: normal exam, mucous membranes moist Neck exam: Present: normal inspection. Absent: tenderness, meningismus, lymphadenopathy Respiratory exam: Present: normal lung sounds bilaterally. Absent: respiratory distress, wheezes, rales, rhonchi, stridor Cardiovascular Exam: Present: regular rate, normal rhythm, normal heart sounds. Absent: systolic murmur, diastolic murmur, rubs, gallop, clicks GI/Abdominal exam: Present: soft, normal bowel sounds. Absent: distended, tenderness, guarding, rebound, rigid Left Shoulder Exam: Present: normal inspection, full ROM (pain with ROM). Absent: swelling, ecchymosis, crepitus, dislocation Neuro motor exam: Present: wrist extension intact Vascular: Present: normal capillary refill, radial pulse (2+). Absent: vascular compromise Back exam: Present: normal inspection Neurological exam: Present: alert, oriented X3, CN II-XII intact Skin exam: Present: warm, dry, intact, normal color. Absent: rash Course Vital Signs 08/04/24 08/04/24 08/04/24 16:03 17:52 18:38 Temperature 98.0 F 98.0 F Pulse Rate 78 71 68 Respiratory 18 16 20 Rate Blood Pressure 136/69 134/64 125/64 O2 Sat by Pulse 97 99 97 Oximetry Medical Decision Making - Medical Decision Making Was pt. sent in by a medical professional or institution (, PA, PLASTIC [employer]S FABRICATOR, urgent care, hospital, or group home...) When possible be specific @ -No Did you speak to anyone other than the patient for history (EMS, parent, family, police, friend...)? What history was obtained from this source @ -No Did you review nursing and triage notes (agree or disagree)? Why? @ -I reviewed and agree with nursing and triage notes Were old charts reviewed (outside hosp., previous admission, EMS record, old EKG, old radiological studies, urgent care reports/EKG's, group home records)? Report findings @ -No old charts were reviewed Differential Diagnosis (chest pain, altered mental status, abdominal pain women, abdominal pain men, vaginal bleeding, weakness, fever, dyspnea, syncope, headache, dizziness, GI bleed, back pain, seizure, CVA, palpatations, mental health, musculoskeletal)? @ -Differential Musculoskeletal Muscular strain, contusion, ligament sprain, fracture, arthritis, septic arthritis, bursitis, cellulitis, muscle spasm, nerve compression, DVT, arterial occlusion, herpes zoster, electrolyte abnormality, tumor.... This is not meant to be in all inclusive list EKG interpreted by me (3pts min.). @ -Completed at 1609 sinus rhythm with sinus arrhythmia, ventricular rate 78, WV interval 154, QRS 86, QTc 398. No acute signs of ischemia Completed at 1709 sinus rhythm with occasional PVCs, ventricular rate 71, WV interval 154, QRS 88, QTc 410. X-rays interpreted by me (1pt min.). @ -X-ray of the left shoulder reveals no acute osseous pathology with moderate shoulder osteoarthrosis X-ray of the chest no acute cardiopulmonary process or disease CT interpreted by me (1pt min.). @ -None done U/S interpreted by me (1pt. min.). @ -None done What testing was considered but not performed or refused? (CT, X-rays, U/S, labs)? Why? @ -None What meds were considered but not given or refused? Why? @ -None Did you discuss the management of the patient with other professionals (professionals i.e. , PA, P[employer] F[employer]RICATOR, lab, RT, psych nurse, social worker masters, heel seam rubber, teacher, chemical instrumentation officer, pillowcase maker)? Give summary @ -No Was smoking cessation discussed for >3mins.? @ -No Was critical care preformed (if so, how long)? @ -No Were there social determinants of health that impacted care today? How? (Homelessness, low income, unemployed, alcoholism, drug addiction, transportation, low edu. Level, literacy, decrease access to med. care, detention, rehab)? @ -No Was there de-escalation of care discussed even if they declined (Discuss DNR or withdrawal of care, Hospice)? DNR status @ -No What co-morbidities impacted this encounter? (DM, HTN, Smoking, COPD, CAD, Cancer, CVA, ARF, Chemo, Hep., AIDS, mental health diagnosis, sleep apnea, morbid obesity)? @ -None Was patient admitted / discharged? Hospital course, mention meds given and route, prescriptions, significant lab abnormalities, going to OR and other pertinent info. @ -Discharge. 78 year old male presenting with nontraumatic left shoulder pain. On my evaluation the patient is resting company no signs acute distress. Vitals are stable. With concern for left sided pain with radiation into the neck will rule out atypical chest pain with cardiac workup including chest x-ray and laboratory studies. Patient is noted to have tenderness to range of motion of the left shoulder with no signs of crepitus. Patient is neuro vastly intact of the left upper extremity. He is offered pain medication however has declined. EKG sinus rhythm. Chest x-ray and shoulder x-ray of the left unremarkable for acute process. Labs markable for mild anemia with hemoglobin 11.7 and hematocrit of 37.2 which appears consistent with the patient's history. Hyperglycemia with a glucose of 273. Troponin mildly less than 0.012. Patient has a low heart score as needed pain that he is experiencing is atypical, has no history of CA PE. Patient was offered prescription for pain medication however declined. States he will follow-up outpatient with primary care provider for further evaluation. Case discussed with my attending Dr. Merritt Undiagnosed new problem with uncertain prognosis? @ -No Drug Therapy requiring intensive monitoring for toxicity (Heparin, Nitro, Insulin, Cardizem)? @ -No Were any procedures done? @ -No Diagnosis/symptom? @ -Nontraumatic left shoulder pain Acute, or Chronic, or Acute on Chronic? @ -Acute Uncomplicated (without systemic symptoms) or Complicated (systemic symptoms)? @ -Uncomplicated Side effects of treatment? @ -No Exacerbation, Progression, or Severe Exacerbation? @ -No Poses a threat to life or bodily function? How? (Chest pain, USA, CA, pneumonia, PE, COPD, DKA, ARF, appy, cholecystitis, CVA, Diverticulitis, Homicidal, Suicidal, threat to staff... and all critical care pts) @ -No - Lab Data Result diagrams: 08/04/24 17:17 08/04/24 17:17 Lab Results 08/04/24 08/04/24 08/04/24 Range/Units 17:17 17:17 17:17 WBC 7.0 (3.8-10.6) k/uL RBC 3.99 L (4.30-5.90) m/uL Hgb 11.7 L (13.0-17.5) gm/dL Hct 37.2 L (39.0-53.0) % MCV 93.3 (80.0-100.0) fL MCH 29.4 (25.0-35.0) pg MCHC 31.5 (31.0-37.0) g/dL RDW 12.9 (11.5-15.5) % Plt Count 139 L (150-450) k/uL MPV 7.7 Neutrophils % 77 % Lymphocytes % 13 % Monocytes % 7 % Eosinophils % 1 % Basophils % 0 % Neutrophils # 5.4 (1.3-7.7) k/uL Lymphocytes # 0.9 L (1.0-4.8) k/uL Monocytes # 0.5 (0-1.0) k/uL Eosinophils # 0.1 (0-0.7) k/uL Basophils # 0.0 (0-0.2) k/uL PT 10.2 (10.0-12.5) sec INR 0.9 (<1.2) APTT 23.6 (22.0-30.0) sec Sodium 134 L (137-145) mmol/L Potassium 5.2 H (3.5-5.1) mmol/L Chloride 106 (98-107) mmol/L Carbon Dioxide 25 (22-30) mmol/L Anion Gap 3 mmol/L BUN 33 H (9-20) mg/dL Creatinine 1.03 (0.66-1.25) mg/dL Est GFR (CKD-EPI)AfAm 80 (>60 ml/min/1.73 sqM) Est GFR (CKD-EPI)NonAf 70 (>60 ml/min/1.73 sqM) Glucose 273 H (74-99) mg/dL Calcium 8.9 (8.4-10.2) mg/dL Magnesium 1.5 L (1.6-2.3) mg/dL Total Bilirubin 0.5 (0.2-1.3) mg/dL AST 20 (17-59) U/L ALT 21 (4-49) U/L Alkaline Phosphatase 95 (38-126) U/L Troponin I (0.000-0.034) ng/mL Total Protein 5.9 L (6.3-8.2) g/dL Albumin 3.6 (3.5-5.0) g/dL 08/04/24 Range/Units 17:17 WBC (3.8-10.6) k/uL RBC (4.30-5.90) m/uL Hgb (13.0-17.5) gm/dL Hct (39.0-53.0) % MCV (80.0-100.0) fL MCH (25.0-35.0) pg MCHC (31.0-37.0) g/dL RDW (11.5-15.5) % Plt Count (150-450) k/uL MPV Neutrophils % % Lymphocytes % % Monocytes % % Eosinophils % % Basophils % % Neutrophils # (1.3-7.7) k/uL Lymphocytes # (1.0-4.8) k/uL Monocytes # (0-1.0) k/uL Eosinophils # (0-0.7) k/uL Basophils # (0-0.2) k/uL PT (10.0-12.5) sec INR (<1.2) APTT (22.0-30.0) sec Sodium (137-145) mmol/L Potassium (3.5-5.1) mmol/L Chloride (98-107) mmol/L Carbon Dioxide (22-30) mmol/L Anion Gap mmol/L BUN (9-20) mg/dL Creatinine (0.66-1.25) mg/dL Est GFR (CKD-EPI)AfAm (>60 ml/min/1.73 sqM) Est GFR (CKD-EPI)NonAf (>60 ml/min/1.73 sqM) Glucose (74-99) mg/dL Calcium (8.4-10.2) mg/dL Magnesium (1.6-2.3) mg/dL Total Bilirubin (0.2-1.3) mg/dL AST (17-59) U/L ALT (4-49) U/L Alkaline Phosphatase (38-126) U/L Troponin I <0.012 (0.000-0.034) ng/mL Total Protein (6.3-8.2) g/dL Albumin (3.5-5.0) g/dL Disposition Clinical Impression: Nontraumatic pain of left shoulder Disposition: HOME SELF-CARE Condition: Good Instructions (If sedation given, give patient instructions): Shoulder Pain (ED) Additional Instructions: Please return to the Emergency Department if symptoms worsen or any other concerns. Is patient prescribed a controlled substance at d/c from ED?: No Referrals: Lui Trinidad MD [Primary Care Provider] - 1-2 days Time of Disposition: 18:26
[2024-08-04 17:25] LABS: Basophils % (A) 0 %; Eosinophils # (A) 0.1 k/uL (0-0.7); Eosinophils % (A) 1 %; HCT 37.2 % (39.0-53.0); HGB 11.7 gm/dL (13.0-17.5); Lymphocytes # (A) 0.9 k/uL (1.0-4.8); Lymphocytes % (A) 13 %; MCH 29.4 pg (25.0-35.0); MCHC 31.5 g/dL (31.0-37.0); MCV 93.3 fL (80.0-100.0); Mean Platelet Volume 7.7; Monocytes # (A) 0.5 k/uL (0-1.0); Monocytes % (A) 7 %; Neutrophils # (A) 5.4 k/uL (1.3-7.7); Neutrophils % (A) 77 %; Platelet Count 139 k/uL (150-450); RBC 3.99 m/uL (4.30-5.90); RDW 12.9 % (11.5-15.5)
[2024-08-04 17:38] LABS: ALT 21 U/L (4-49); AST 20 U/L (17-59); African American GFR (CKD) 80 (>60 ml/min/1.73 sqM); Albumin 3.6 g/dL (3.5-5.0); Alkaline Phosphatase 95 U/L (38-126); Anion Gap 3 mmol/L; Blood Urea Nitrogen 33 mg/dL (9-20); Calcium 8.9 mg/dL (8.4-10.2); Carbon Dioxide 25 mmol/L (22-30); Chloride 106 mmol/L (98-107); Glucose 273 mg/dL (74-99); INR 0.9 (<1.2); Magnesium 1.5 mg/dL (1.6-2.3); Non-African American GFR(CKD) 70 (>60 ml/min/1.73 sqM); Partial Thromboplastin Time 23.6 sec (22.0-30.0); Potassium 5.2 mmol/L (3.5-5.1); Prothrombin Time 10.2 sec (10.0-12.5); Sodium 134 mmol/L (137-145); Total Bilirubin 0.5 mg/dL (0.2-1.3); Total Protein 5.9 g/dL (6.3-8.2)
--- NOTE | 2024-08-04 18:11 | XR ---
EXAMINATION TYPE: XR chest 2V DATE OF EXAM: 08/04/2024 5:40 PM COMPARISON: Chest radiographs from 02/12/2024 CLINICAL INDICATION: Male, 78 years old with history of Chest Pain; [facility] TECHNIQUE: XR chest 2V Frontal and lateral views of the chest. FINDINGS: Lungs/Pleura: There is no evidence of pleural effusion, focal consolidation, or pneumothorax. Pulmonary vascularity: Unremarkable. Heart/mediastinum: Cardiomediastinal silhouette is unremarkable. Musculoskeletal: No acute osseous pathology. There is lower spine fixation hardware is present. Other findings: None IMPRESSION: No acute cardiopulmonary disease/process. [facility], , 08/04/2024 6:09 PM
--- NOTE | 2024-08-04 18:12 | XR ---
EXAMINATION TYPE: XR shoulder complete LT DATE OF EXAM: 08/04/2024 5:41 PM COMPARISON: None CLINICAL INDICATION: Male, 78 years old with history of pain; TECHNIQUE: XR shoulder complete LT; examined in AP, internally rotated and scapular Y projections. FINDINGS: No evidence of acute osseous pathology, joint dislocation, or soft tissue swelling. The remaining po rtions of the visualized chest are unremarkable. Degeneration changes of the acromion, distal clavic le with osteophyte formation. There is osteophyte formation of the glenoid and humeral head. There is joint space narrowing of glenohumeral joint. Metallic densities project over the left proximal humer us. IMPRESSION: 1. No acute osseous pathology. 2. Moderate shoulder osteoarthrosis. [facility], , 08/04/2024 6:10 PM
[2024-08-04 18:41] VITALS: BP 125/64; PULSE 68; RESP 20
== END 2024-08-04 18:41 | disposition home or self-care (01) ==
LOC: EC 16:02
DX: M25.512 Pain in left shoulder (principal); Z88.0 Allergy status to penicillin
CPT/HCPCS: 36415; 71046; 80053; 83735; 84484; 85025; 85610; 85730; 93005; 99284

== ENCOUNTER 2025-02-03 12:32 | Observation (INO) | payer BC, MEDICARE, SELFPAY ==
--- NOTE | 2025-02-03 12:47 | ED ---
General Adult HPI - General Stated complaint: Altered Level Time Seen by Provider: 02/03/25 12:32 Source: patient, RN notes reviewed, old records reviewed - History of Present Illness Initial comments: This is a 79-year-old male who was found down at his assisted living facility and no one knows how long he was down. According to EMS patient was having CPR performed when fire arrived in the room realized the patient was breathing and did have a pulse with a stop CPR immediately. Patient's blood sugar on arrival was 43 and EMS did give the patient 1 amp of D50. Patient remained unresponsive en route and continued to have stable vital signs. No further history is available at this time except for the fact that the patient has a bruise above his left eye on his forehead. EMS also reported that his pupil in his right eye was about 3 mm and his left eye was pinpoint. - Related Data Home Medications Medication Instructions Recorded Confirmed Atorvastatin [Lipitor] 20 mg PO HS 11/04/23 02/03/25 Dorzolamide-Timol 2.23%/0.68% 1 drop BOTH EYES BID 11/04/23 02/03/25 [Cosopt] Latanoprost [Latanoprost 0.005%] 1 drop BOTH EYES HS 11/04/23 02/03/25 Omeprazole 40 mg PO DAILY 04/27/24 02/03/25 Pioglitazone [Actos] 15 mg PO DAILY 04/27/24 02/03/25 metFORMIN HCL [Glucophage] 500 mg PO BID 04/27/24 02/03/25 Insulin Aspart [NovoLOG Flexpen] 12 units SQ AC-BID@0700,1200 02/03/25 02/03/25 Insulin Aspart [NovoLOG Flexpen] 16 units SQ AC-SUPPER 02/03/25 02/03/25 Allergies Allergy/AdvReac Type Severity Reaction Status Date / Time Penicillins AdvReac Nausea & Verified 02/03/25 14:10 Vomiting Review of Systems ROS Statement: Those systems with pertinent positive or pertinent negative responses have been documented in the HPI. ROS Other: All systems not noted in ROS Statement are negative. Past Medical History Past Medical History: Diabetes Mellitus, Hyperlipidemia, Hypertension Additional Past Medical History / Comment(s): R eye blindness (2016) History of Any Multi-Drug Resistant Organisms: None Reported Past Surgical History: Orthopedic Surgery Past Psychological History: No Psychological Hx Reported Smoking Status: Never smoker Past Alcohol Use History: None Reported Past Drug Use History: None Reported General Exam - General Exam Comments Initial Comments: GENERAL: Patient is well-developed and well-nourished. Patient is nontoxic and well- hydrated and is in no acute distress. ENT: Neck is soft and supple. No significant lymphadenopathy is noted. Oropharynx is clear. Moist mucous membranes. Neck has full range of motion without eliciting any pain. EYES: The sclera were anicteric and conjunctiva were pink and moist. Patient's right eye 3 mm pupil left eye was pinpoint. Neither appear to be reactive. Eyelids were unremarkable. PULMONARY: Unlabored respirations. Good breath sounds bilaterally. No audible rales rhonchi or wheezing was noted. CARDIOVASCULAR: There is a regular rate and rhythm without any murmurs gallops or rubs. ABDOMEN: Soft and nontender with normal bowel sounds. SKIN: Skin is clear with no lesions or rashes and otherwise unremarkable. NEUROLOGIC: Patient is alert and oriented x 0 but to some commands with yes or no answers. Cranial nerves II through XII are grossly intact. Motor and sensory are also intact. Normal speech, volume and content. Symmetrical smile. MUSCULOSKELETAL: Normal extremities with adequate strength and full range of motion. LYMPHATICS: No significant lymphadenopathy is noted PSYCHIATRIC: Normal psychiatric evaluation. Course Vital Signs 02/03/25 02/03/25 02/03/25 12:34 13:55 14:00 Temperature 93.6 F L 96.8 F L Pulse Rate 102 H 99 98 Respiratory 18 14 19 Rate Blood Pressure 189/110 158/95 157/105 O2 Sat by Pulse 98 94 L 97 Oximetry Medical Decision Making - Medical Decision Making EKG is interpreted by myself her EKG shows a sinus rhythm at 98 bpm TX 181 QRS is 98 QT interval 352 QTc is 407. Patient's EKG shows no ST segment elevation o r depression. Was pt. sent in by a medical professional or institution (, PA, TWILL CUTTER, urgent care, hospital, or care home...) When possible be specific @ -No Did you speak to anyone other than the patient for history (EMS, parent, family, police, friend...)? What history was obtained from this source @ -No Did you review nursing and triage notes (agree or disagree)? Why? @ -I reviewed and agree with nursing and triage notes Were old charts reviewed (outside hosp., previous admission, EMS record, old EKG, old radiological studies, urgent care reports/EKG's, care home records)? Report findings @ -No old charts were reviewed Differential Diagnosis? @ -Differential Altered Mental Status: Hypoglycemia, DKA, hypercapnia, ETOH, overdose, CO poisoning, trauma, myxedema coma, HTN encephalopathy, infection, encephalitis, psychosis, intercranial hemorrhage, hepatic encephalopathy, meningitis, CVA, this is not meant to be an all-inclusive list EKG interpreted by me (3pts min.). @ -As above X-rays interpreted by me (1pt min.). @ -Chest x-ray shows no acute abnormality CT interpreted by me (1pt min.). @ -CT of the brain and C-spine showed no acute abnormality U/S interpreted by me (1pt. min.). @ -None done What testing was considered but not performed or refused? (CT, X-rays, U/S, l abs)? Why? @ -None What meds were considered but not given or refused? Why? @ -None Did you discuss the management of the patient with other professionals (professionals i.e. , PA, TWILL CUTTER, lab, RT, psych nurse, social media specialist, ranch hand, teacher, facility security officer, pillowcase maker)? Give summary @ -I spoke with sound physicians agreed to admit the patient admit the patient recommending Was smoking cessation discussed for >3mins.? @ -No Was critical care preformed (if so, how long)? @ -35 minutes Were there social determinants of health that impacted care today? How? (Homelessness, low income, unemployed, alcoholism, drug addiction, transportation, low edu. Level, literacy, decrease access to med. care, fpc, rehab)? @ -No Was there de-escalation of care discussed even if they declined (Discuss DNR or withdrawal of care, Hospice)? DNR status @ -No What co-morbidities impacted this encounter? (DM, HTN, Smoking, COPD, CAD, Cancer, CVA, ARF, Chemo, Hep., AIDS, mental health diagnosis, sleep apnea, mo rbid obesity)? @ -None Was patient admitted / discharged? Hospital course, mention meds given and ro torres martinez, prescriptions, significant lab abnormalities, going to OR and other pertinent info. @ -Patient was given D50 on [address] in he still was unresponsive on arrival he eventually started to slowly come around. Patient's sugar was read taken and it was low again so he was given another amp of D50. Patient had a CT of the brain and C-spine showed no acute dramality. Chest x-ray showed no acute normality. After a while longer patient became alert and oriented x 2 and he still seems somewhat confused on admission but no family member is around to tell us if this is his baseline. Is not known for sure if he has any dementia. Some physicians will admit the patient Undiagnosed new problem with uncertain prognosis? @ -No Drug Therapy requiring intensive monitoring for toxicity (Heparin, Nitro, Insulin, Cardizem)? @ -No Were any procedures done? @ -No Diagnosis/symptom? @ -Hypoglycemia Acute, or Chronic, or Acute on Chronic? @ -Acute Uncomplicated (without systemic symptoms) or Complicated (systemic symptoms)? @ -Complicated Side effects of treatment? @ -No Exacerbation, Progression, or Severe Exacerbation? @ -No Poses a threat to life or bodily function? How? (Chest pain, [place], [place], pneumonia, PE, COPD, DKA, ARF, appy, cholecystitis, CVA, Diverticulitis, Homicidal, Suicidal, threat to staff... and all critical care pts) @ -No Diagnosis/symptom? @ -Hypothermia Acute, or Chronic, or Acute on Chronic? @ -Acute Uncomplicated (without systemic symptoms) or Complicated (systemic symptoms)? @ -Complicated Side effects of treatment? @ -None Exacerbation, Progression, or Severe Exacerbation] @ -No Poses a threat to life or bodily function? @ -No Diagnosis/symptom? @ -Altered mental status Acute, or Chronic, or Acute on Chronic? @ -Acute Uncomplicated (without systemic symptoms) or Complicated (systemic symptoms)? @ -Complicated Side effects of treatment? @ -None Exacerbation, Progression, or Severe Exacerbation] @ -No Poses a threat to life or bodily function? @ -No Diagnosis/symptom? @ -Head injury Acute, or Chronic, or Acute on Chronic? @ -Acute Uncomplicated (without systemic symptoms) or Complicated (systemic symptoms)? @ -Uncomplicated Side effects of treatment? @ -None Exacerbation, Progression, or Severe Exacerbation] @ -No Poses a threat to life or bodily function? @ -No - Lab Data Result diagrams: 02/03/25 12:57 02/03/25 12:52 Lab Results 02/03/25 02/03/25 02/03/25 Range/Units 12:52 12:52 12:52 WBC (4.50-10.00) 10*3/uL RBC (4.40-5.60) 10*6/uL Hgb (13.0-17.0) g/dL Hct (39.6-50.0) % MCV (80.0-97.0) fL MCH (27.0-32.0) pg MCHC (32.0-37.0) g/dL Plt Count (140-440) 10*3/uL MPV (9.5-12.2) fL Immature Gran % (Auto) % Neutrophils % % Lymphocytes % % Monocytes % % Eosinophils % % Basophils % % Immature Gran # (0.00-0.04) 10*3/uL Neutrophils # (1.80-7.70) 10*3/uL Lymphocytes # (0.90-5.00) 10*3/uL Monocytes # (0.20-1.00) 10*3/uL Eosinophils # (0.04-0.35) 10*3/uL Basophils # (0.00-0.10) 10*3/uL PT 10.3 (10.0-12.5) sec INR 0.9 (<1.2) APTT 21.2 L (22.0-30.0) sec Sodium 139 (137-145) mmol/L Potassium 4.8 (3.5-5.1) mmol/L Chloride 105 (98-107) mmol/L Carbon Dioxide 27 (22-30) mmol/L Anion Gap 7 mmol/L BUN 30 H (9-20) mg/dL Creatinine 0.93 (0.66-1.25) mg/dL Est GFR (CKD-EPI)AfAm >90 (>60 ml/min/1.73 sqM) Est GFR (CKD-EPI)NonAf 78 (>60 ml/min/1.73 sqM) Glucose 69 L (74-99) mg/dL POC Glucose (mg/dL) (70-110) mg/dL POC Glu Geothermal Hvac Technician ID Calcium 9.7 (8.4-10.2) mg/dL Magnesium 1.7 (1.6-2.3) mg/dL Total Bilirubin 0.6 (0.2-1.3) mg/dL AST 36 (17-59) U/L ALT 29 (4-49) U/L Alkaline Phosphatase 77 (38-126) U/L Troponin I <0.012 (0.000-0.034) ng/mL Total Protein 6.8 (6.3-8.2) g/dL Albumin 4.2 (3.5-5.0) g/dL 02/03/25 02/03/25 02/03/25 Range/Units 12:54 12:57 13:12 WBC 8.65 (4.50-10.00) 10*3/uL RBC 4.09 L (4.40-5.60) 10*6/uL Hgb 12.4 L (13.0-17.0) g/dL Hct 37.1 L (39.6-50.0) % MCV 90.7 (80.0-97.0) fL MCH 30.3 (27.0-32.0) pg MCHC 33.4 (32.0-37.0) g/dL Plt Count 216 (140-440) 10*3/uL MPV 9.3 L (9.5-12.2) fL Immature Gran % (Auto) 0.5 % Neutrophils % 77.2 % Lymphocytes % 12.0 % Monocytes % 8.3 % Eosinophils % 1.4 % Basophils % 0.6 % Immature Gran # 0.04 (0.00-0.04) 10*3/uL Neutrophils # 6.68 (1.80-7.70) 10*3/uL Lymphocytes # 1.04 (0.90-5.00) 10*3/uL Monocytes # 0.72 (0.20-1.00) 10*3/uL Eosinophils # 0.12 (0.04-0.35) 10*3/uL Basophils # 0.05 (0.00-0.10) 10*3/uL PT (10.0-12.5) sec INR (<1.2) APTT (22.0-30.0) sec Sodium (137-145) mmol/L Potassium (3.5-5.1) mmol/L Chloride (98-107) mmol/L Carbon Dioxide (22-30) mmol/L Anion Gap mmol/L BUN (9-20) mg/dL Creatinine (0.66-1.25) mg/dL Est GFR (CKD-EPI)AfAm (>60 ml/min/1.73 sqM) Est GFR (CKD-EPI)NonAf (>60 ml/min/1.73 sqM) Glucose (74-99) mg/dL POC Glucose (mg/dL) 65 L 110 (70-110) mg/dL POC Glu Geothermal Hvac Technician ID Liniarski Camille Liniarski Camille Calcium (8.4-10.2) mg/dL Magnesium (1.6-2.3) mg/dL Total Bilirubin (0.2-1.3) mg/dL AST (17-59) U/L ALT (4-49) U/L Alkaline Phosphatase (38-126) U/L Troponin I (0.000-0.034) ng/mL Total Protein (6.3-8.2) g/dL Albumin (3.5-5.0) g/dL 02/03/25 Range/Units 13:52 WBC (4.50-10.00) 10*3/uL RBC (4.40-5.60) 10*6/uL Hgb (13.0-17.0) g/dL Hct (39.6-50.0) % MCV (80.0-97.0) fL MCH (27.0-32.0) pg MCHC (32.0-37.0) g/dL Plt Count (140-440) 10*3/uL MPV (9.5-12.2) fL Immature Gran % (Auto) % Neutrophils % % Lymphocytes % % Monocytes % % Eosinophils % % Basophils % % Immature Gran # (0.00-0.04) 10*3/uL Neutrophils # (1.80-7.70) 10*3/uL Lymphocytes # (0.90-5.00) 10*3/uL Monocytes # (0.20-1.00) 10*3/uL Eosinophils # (0.04-0.35) 10*3/uL Basophils # (0.00-0.10) 10*3/uL PT (10.0-12.5) sec INR (<1.2) APTT (22.0-30.0) sec Sodium (137-145) mmol/L Potassium (3.5-5.1) mmol/L Chloride (98-107) mmol/L Carbon Dioxide (22-30) mmol/L Anion Gap mmol/L BUN (9-20) mg/dL Creatinine (0.66-1.25) mg/dL Est GFR (CKD-EPI)AfAm (>60 ml/min/1.73 sqM) Est GFR (CKD-EPI)NonAf (>60 ml/min/1.73 sqM) Glucose (74-99) mg/dL POC Glucose (mg/dL) 92 (70-110) mg/dL POC Glu Geothermal Hvac Technician ID Guillermo Negrete Calcium (8.4-10.2) mg/dL Magnesium (1.6-2.3) mg/dL Total Bilirubin (0.2-1.3) mg/dL AST (17-59) U/L ALT (4-49) U/L Alkaline Phosphatase (38-126) U/L Troponin I (0.000-0.034) ng/mL Total Protein (6.3-8.2) g/dL Albumin (3.5-5.0) g/dL Disposition Clinical Impression: Altered mental status, Hypoglycemia, Hypothermia, Head injury Disposition: ADMITTED IP TO THIS HOSP Referrals: Lui Trinidad MD [Primary Care Provider] - 1-2 days Time of Disposition: 14:50
[2025-02-03 12:54] LABS: Glucose,Whole Blood 65 mg/dL (70-110)
[2025-02-03] MEDS: DEXTROSE 50% SYRINGE 50 ML IVP STA (13:05)
[2025-02-03 13:13] LABS: Glucose,Whole Blood 110 mg/dL (70-110)
--- NOTE | 2025-02-03 13:24 | CT ---
EXAMINATION TYPE: CT brain magalys wo con DATE OF EXAM: 02/03/2025 COMPARISON: 11/03/2023 CLINICAL INDICATION: Male, 79 years old with history of Trauma; [facility], TECHNIQUE: CT scan of the head and cervical spine are performed without contrast. CT DLP: mGycm CT CTDI: mGy Automated exposure control for dose reduction was used. Findings: Head CT: Ventricles, basal cisterns and sulci over convexities are mildly enlarged consistent with mild genera lized atrophy. There is no mass effect or shift of midline structures. There is moderate diffuse decreased density in the periventricular white matter consistent with chron ic ischemic white matter demyelination. 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 There is no acute intra or extra-axial hemorrhage. The intraorbital contents appear normal and symmetric there is near complete opacification of the lef t maxillary sinus secondary to inspissated relatively dense material. There is a stable mucous retent ion cyst or polyp in the sphenoid sinus. The mastoid air cells are well aerated. CT cervical spine: Craniovertebral junction relationships and prevertebral soft tissues are normal. Cervical vertebral segments are normal in height with no evidence of fracture. There is a 2 to 3 mm a nterolisthesis of C3 on C4. There is advanced degenerative disc disease at C4-5, C5-6 and C6-7 levels where there is advanced dis c space narrowing, spondylosis and discogenic endplate changes. There is moderate arthropathy of the facet joints and uncovertebral joints throughout the cervical spine greatest in the lower cervical sp ine from C4 through C6 C7. The bony cervical canal is patent. There is multilevel bony neural foraminal stenosis as follows; severe at C3-4 on the left, mild at C4 -5 on the right, moderate at C5-6 on the right, and moderate at C6-7 on the left. The paraspinal soft tissues unremarkable. IMPRESSION: 1. Head CT: No acute bleed or mass effect. Remote right cerebellar infarct. Mild senescent changes. 2. CT cervical spine: No acute trauma. Advanced degenerative changes as described above. [facility], , 02/03/2025 1:22 PM
[2025-02-03 13:30] LABS: Carbon Dioxide 27 mmol/L (22-30); Chloride 105 mmol/L (98-107); Glucose 69 mg/dL (74-99); Sodium 139 mmol/L (137-145)
[2025-02-03 13:31] LABS: ALT 29 U/L (4-49); AST 36 U/L (17-59); African American GFR (CKD) >90 (>60 ml/min/1.73 sqM); Albumin 4.2 g/dL (3.5-5.0); Alkaline Phosphatase 77 U/L (38-126); Anion Gap 7 mmol/L; Blood Urea Nitrogen 30 mg/dL (9-20); Calcium 9.7 mg/dL (8.4-10.2); Magnesium 1.7 mg/dL (1.6-2.3); Non-African American GFR(CKD) 78 (>60 ml/min/1.73 sqM); Total Bilirubin 0.6 mg/dL (0.2-1.3); Total Protein 6.8 g/dL (6.3-8.2)
--- NOTE | 2025-02-03 13:48 | XR ---
EXAMINATION TYPE: XR chest 1V portable DATE OF EXAM: 02/03/2025 1:42 PM COMPARISON: 08/04/2024 CLINICAL INDICATION: Male, 79 years old with history of chest pain, TECHNIQUE: XR chest 1V portable view(s) obtained. FINDINGS: The heart size is normal. The pulmonary vasculature is normal. The lungs are clear. IMPRESSION: 1. No acute pulmonary process. [facility], , 02/03/2025 1:45 PM
[2025-02-03 13:52] LABS: Basophils # (A) 0.05 10*3/uL (0.00-0.10); Basophils % (A) 0.6 %; Eosinophils # (A) 0.12 10*3/uL (0.04-0.35); Eosinophils % (A) 1.4 %; HCT 37.1 % (39.6-50.0); HGB 12.4 g/dL (13.0-17.0); Lymphocytes # (A) 1.04 10*3/uL (0.90-5.00); MCH 30.3 pg (27.0-32.0); MCHC 33.4 g/dL (32.0-37.0); MCV 90.7 fL (80.0-97.0); Mean Platelet Volume 9.3 fL (9.5-12.2); Monocytes # (A) 0.72 10*3/uL (0.20-1.00); Monocytes % (A) 8.3 %; Neutrophils # (A) 6.68 10*3/uL (1.80-7.70); Neutrophils % (A) 77.2 %; Platelet Count 216 10*3/uL (140-440); RBC 4.09 10*6/uL (4.40-5.60); RDW 13.4 % (11.5-14.5); WBC 8.65 10*3/uL (4.50-10.00)
[2025-02-03 13:53] LABS: Glucose,Whole Blood 92 mg/dL (70-110)
[2025-02-03 14:06] LABS: Potassium 4.8 mmol/L (3.5-5.1)
[2025-02-03 14:21] LABS: INR 0.9 (<1.2); Partial Thromboplastin Time 21.2 sec (22.0-30.0); Prothrombin Time 10.3 sec (10.0-12.5)
[2025-02-03] MEDS: SODIUM CHLORIDE 0.9% 1,000 ML IV ONE (16:03)
[2025-02-03 16:30] LABS: Appearance,Urine Clear (Clear); Bilirubin,Urine Negative (Negative); Blood,Urine Negative (Negative); Color,Urine Colorless; Glucose,Urine (UA) 2+ (Negative); Ketones,Urine Negative (Negative); Leukocyte Esterase,Urine Negative (Negative); Nitrite,Urine Negative (Negative); PH, Urine 6.5 (5.0-8.0); Protein,Urine Negative (Negative); Specific Gravity,Urine 1.007 (1.001-1.035); Urobilinogen,Urine <2.0 mg/dL (<2.0)
[2025-02-03] MEDS ORDERED: DOCUSATE 100 MG CAP PO PRN (18:27)
[2025-02-03] MEDS ORDERED: CALCIUM CARBONATE 500 MG CHEWABLE PO PRN (18:27)
[2025-02-03] MEDS ORDERED: ONDANSETRON 4 MG/2 ML VIAL IVP PRN (18:27)
[2025-02-03] MEDS ORDERED: NALOXONE 0.4 MG/ML 1 ML VIAL IV PRN (18:27)
--- NOTE | 2025-02-03 18:32 | P.HPIM ---
History of Present Illness H&P Date: 02/03/25 79 year old M with PMH of DM on insulin, glaucoma, HLD, GERD presents to the ED after being found down. Unknown down time. Initially bystanders started CPR but was terminated when EMS arrived and noted patient was breathing and had a pulse. He was noted to have a blood glucose of 43 and was given 1 amp of D50 and sent to the ED for further evaluation. In the ED he underwent extensive evaluation. T low 93.6F, BP 189/110, HR 102, RR 18, 98% on RA. CBC, Coag panel, CMP significant for RBC 4.09, Hg 12.4, Hct 37.1, BUN 30, glu 69. Trop < 0.012. Mag 1.9. UA 2+ glucose. Patient currently denies any complaints. He denies any headache, LE edema, N/V, fever or chills, cough, chest pain, SOB, palpitations, changes in urination or bowel habits. No changes in appetite or weight. No dizziness, numbness/weakness/tinging of the extremities. CT brain remote R cerebella infarct. CT C-spine no acute pathology. CXR no acute pathology. EKG NSR with no ST T wave changes. Patient is admitted for further workup and management. General: no distress, appears at stated age Derm: warm, dry Head: atraumatic, normocephalic, symmetric Eyes: Pupils non reactive. Mouth: no lip lesion, mucus membranes moist Cardiovascular: S1 S2 reg. No murmur. Lungs: Decreased BS bilaterally, no accessory muscle use Ext: no gross muscle atrophy, no edema, no contractures Neuro: No focal neurologic deficits. Psych: Pleasantly confused. Based on my assessment of this patient, this patient meets a high complexity level of care. Acute metabolic encepalopathy likely due to below. DM with Hypoglycemia: Hold insulin. DC Metformin and Actos. Accuchecks [id number]. Hypoglycemic precautions. Fall precautions. Neurochecks. Obtain A1c. PT and OT consult. SIRS: No signs of active infection. Likely due to above. Obtain BCx. Hold ant ibiotics for now. [place] hugger to maintain temperature. Prerenal azotemia: NS at 75 cc/hr. Normocytic anemia: No signs of active bleeding. Recommend age appropriate CA screening. Glaucoma: Dorzolamide-Timolol eye drops. Latanoprost eye drops. HLD: Lipitor 20 mg PO QHS. GERD: Protonix 40 mg PO QD. CODE STATUS: FULL CODE DVT Prophylaxis: Lovenox. GI Prophylaxis: Protonix PO Designated medical POA if patient is not able to make medical decisions for themselves: I have reviewed the following men's custom hair piece consultant notes: ED note. I have reviewed the results of the following tests: As above. I have ordered the following tests: As above. I have discussed the care of this patient with the following independent historian: I have independently interpreted the following test below: EKG. I have discussed the management of this patient with the following physician: Dr. Montemayor. Past Medical History Past Medical History: Diabetes Mellitus, Hyperlipidemia, Hypertension Additional Past Medical History / Comment(s): R eye blindness (2015) History of Any Multi-Drug Resistant Organisms: None Reported Past Surgical History: Orthopedic Surgery Past Psychological History: No Psychological Hx Reported Smoking Status: Never smoker Past Alcohol Use History: None Reported Past Drug Use History: None Reported Medications and Allergies Home Medications Medication Instructions Recorded Confirmed Type Atorvastatin [Lipitor] 20 mg PO HS 11/04/23 02/03/25 History Dorzolamide-Timol 2.23%/0.68% 1 drop BOTH EYES BID 11/04/23 02/03/25 History [Cosopt] Latanoprost [Latanoprost 0.005%] 1 drop BOTH EYES HS 11/04/23 02/03/25 History Omeprazole 40 mg PO DAILY 04/27/24 02/03/25 History Pioglitazone [Actos] 15 mg PO DAILY 04/27/24 02/03/25 History metFORMIN HCL [Glucophage] 500 mg PO BID 04/27/24 02/03/25 History Insulin Aspart [NovoLOG Flexpen] 12 units SQ AC-BID@0700,1200 02/03/25 02/03/25 History Insulin Aspart [NovoLOG Flexpen] 16 units SQ AC-SUPPER 02/03/25 02/03/25 History Allergies Allergy/AdvReac Type Severity Reaction Status Date / Time Penicillins AdvReac Nausea & Verified 02/03/25 14:10 Vomiting Physical Exam Vitals: Vital Signs Temp Pulse Resp BP Pulse Ox 02/03/25 16:08 97.4 F L 95 18 128/83 96 02/03/25 14:00 96.8 F L 98 19 157/105 97 02/03/25 13:55 99 14 158/95 94 L 02/03/25 12:34 93.6 F L 102 H 18 189/110 98 Intake and Output 02/03/25 02/03/25 02/03/25 06:59 14:59 22:59 Other: Weight 86.183 kg Results CBC & Chem 7: 02/03/25 12:57 02/03/25 12:52 Labs: Abnormal Lab Results - Last 24 Hours (Table) 02/03/25 02/03/25 02/03/25 Range/Units 12:52 12:52 12:54 RBC (4.40-5.60) 10*6/uL Hgb (13.0-17.0) g/dL Hct (39.6-50.0) % MPV (9.5-12.2) fL APTT 21.2 L (22.0-30.0) sec BUN 30 H (9-20) mg/dL Glucose 69 L (74-99) mg/dL POC Glucose (mg/dL) 65 L (70-110) mg/dL Urine Glucose (UA) (Negative) 02/03/25 02/03/25 Range/Units 12:57 16:07 RBC 4.09 L (4.40-5.60) 10*6/uL Hgb 12.4 L (13.0-17.0) g/dL Hct 37.1 L (39.6-50.0) % MPV 9.3 L (9.5-12.2) fL APTT (22.0-30.0) sec BUN (9-20) mg/dL Glucose (74-99) mg/dL POC Glucose (mg/dL) (70-110) mg/dL Urine Glucose (UA) 2+ H (Negative)
[2025-02-03 18:51] LABS: Glucose,Whole Blood 176 mg/dL (70-110)
[2025-02-03] MEDS: ATORVASTATIN 20 MG TAB PO SCH (20:59)
[2025-02-03] MEDS ORDERED: metFORMIN 500 MG TAB PO SCH (21:00)
[2025-02-03] MEDS: DORZOLAMIDE-TIMOLOL 2.23%/0.68 10ML BTL BOTH EYES SCH (21:01)
[2025-02-03] MEDS: LATANOPROST 0.005% OPHTH DROPS 2.5 ML BTL BOTH EYES SCH (21:01)
[2025-02-04 02:19] LABS: Glucose,Whole Blood 131 mg/dL (70-110)
[2025-02-04 06:38] LABS: Basophils # (A) 0.03 10*3/uL (0.00-0.10); Basophils % (A) 0.5 %; Eosinophils # (A) 0.12 10*3/uL (0.04-0.35); HCT 34.3 % (39.6-50.0); HGB 11.7 g/dL (13.0-17.0); Lymphocytes # (A) 1.51 10*3/uL (0.90-5.00); Lymphocytes % (A) 24.8 %; MCH 30.5 pg (27.0-32.0); MCHC 34.1 g/dL (32.0-37.0); MCV 89.6 fL (80.0-97.0); Mean Platelet Volume 10.3 fL (9.5-12.2); Monocytes % (A) 13.1 %; Neutrophils # (A) 3.62 10*3/uL (1.80-7.70); Neutrophils % (A) 59.3 %; Platelet Count 210 10*3/uL (140-440); RBC 3.83 10*6/uL (4.40-5.60); RDW 13.2 % (11.5-14.5)
[2025-02-04 06:53] LABS: African American GFR (CKD) >90 (>60 ml/min/1.73 sqM); Anion Gap 7 mmol/L; Blood Urea Nitrogen 22 mg/dL (9-20); Calcium 9.3 mg/dL (8.4-10.2); Carbon Dioxide 25 mmol/L (22-30); Chloride 106 mmol/L (98-107); Glucose 105 mg/dL (74-99); Non-African American GFR(CKD) 83 (>60 ml/min/1.73 sqM); Potassium 4.1 mmol/L (3.5-5.1); Sodium 138 mmol/L (137-145)
[2025-02-04] MEDS ORDERED: PIOGLITAZONE 15 MG TAB PO SCH (09:00)
[2025-02-04] MEDS: PANTOPRAZOLE 40 MG TABLET PO SCH (09:13)
[2025-02-04] MEDS: ENOXAPARIN 40 MG/0.4 ML SYRINGE SQ SCH (09:13)
[2025-02-04 12:24] LABS: Glucose,Whole Blood 111 mg/dL (70-110)
--- NOTE | 2025-02-04 17:46 | P.PN ---
Subjective Progress Note Date: 02/04/25 79 year old M with PMH of DM on insulin, glaucoma, HLD, GERD presents to the ED after being found down. Unknown down time. Initially bystanders started CPR but was terminated when EMS arrived and noted patient was breathing and had a pulse. He was noted to have a blood glucose of 43 and was given 1 amp of D50 and sent to the ED for further evaluation. In the ED he underwent extensive evaluation. Tlow 93.6F, BP 189/110, HR 102, RR 18, 98% on RA. CBC, Coag panel, CMP significant for RBC 4.09, Hg 12.4, Hct 37.1, BUN 30, glu 69. Trop < 0.012. Mag 1.9. UA 2+ glucose. Patient currently denies any complaints. He denies any headache, LE edema, N/V, fever or chills, cough, chest pain, SOB, palpitations, changes in urination or bowel habits. No changes in appetite or weight. No dizziness, numbness/weakness/tinging of the extremities. CT brain remote R cerebella infarct. CT C-spine no acute pathology. CXR no acute pathology. EKG NSR with no ST T wave changes. Patient is admitted for further workup and management. 02/04 Patient was seen and examined. Doing quite well. Off cecil hugger. CBC and CMP significant for WBC 3.83, Hg 11.7, Hct 34.3, BUN 22, glu 105. A1c 11.2. POC glucose 65-176 over the past 24H. Not on any insulin. General: no distress, appears at stated age Derm: warm, dry Head: atraumatic, normocephalic, symmetric Eyes: Pupils non reactive. Mouth: no lip lesion, mucus membranes moist Cardiovascular: S1 S2 reg. No murmur. Lungs: Decreased BS bilaterally, no accessory muscle use Ext: no gross muscle atrophy, no edema, no contractures Neuro: No focal neurologic deficits. Psych: Pleasantly confused. Based on my assessment of this patient, this patient meets a high complexity lev el of care. Acute metabolic encepalopathy likely due to below. DM with Hypoglycemia: Hold insulin and monitor POC glucose for 1 more day. DC Metformin and Actos. Accuchecks [id number]. Hypoglycemic precautions. Fall precautions. Neurochecks. A1c as above. PT and OT consult. SIRS: No signs of active infection. Likely due to above. Follow BCx. Hold antibiotics for now. Normocytic anemia: No signs of active bleeding. Recommend age appropriate CA screening. Glaucoma: Dorzolamide-Timolol eye drops. Latanoprost eye drops. HLD: Lipitor 20 mg PO QHS. GERD: Protonix 40 mg PO QD. Resolved: Prerenal azotemia Monitor blood glucose off insulin. Mentation improving. PT and OT consult pending. Anticipate DC in 1-2 days if showing continued improvement. CODE STATUS: FULL CODE DVT Prophylaxis: Lovenox. GI Prophylaxis: Protonix PO Designated medical POA if patient is not able to make medical decisions for themselves: I have reviewed the following digital marketing consultant notes: I have reviewed the results of the following tests: As above. I have ordered the following tests: As above. I have discussed the care of this patient with the following independent historian: I have independently interpreted the following test below: I have discussed the management of this patient with the following physician: Objective - Vital Signs Vital signs: Vital Signs Temp 97.8 F 02/04/25 13:16 Pulse 74 02/04/25 13:16 Resp 18 02/04/25 13:16 BP 143/89 02/04/25 13:16 Pulse Ox 96 02/04/25 13:16 FiO2 Intake & Output 02/03/25 02/04/25 02/04/25 18:59 06:59 18:59 Output Total 500 Balance -500 Weight 86.183 kg Output: Urine 500 Other: Voiding Method Urinal - Labs CBC & Chem 7: 02/04/25 05:38 02/04/25 05:38 Labs: Abnormal Lab Results - Last 24 Hours (Table) 02/03/25 02/04/25 02/04/25 Range/Units 18:49 02:18 05:38 RBC (4.40-5.60) 10*6/uL Hgb (13.0-17.0) g/dL Hct (39.6-50.0) % BUN (9-20) mg/dL Glucose (74-99) mg/dL POC Glucose (mg/dL) 176 H 131 H (70-110) mg/dL Hemoglobin A1c 11.2 H (<=6.0) % 02/04/25 02/04/25 02/04/25 Range/Units 05:38 05:38 12:22 RBC 3.83 L (4.40-5.60) 10*6/uL Hgb 11.7 L (13.0-17.0) g/dL Hct 34.3 L (39.6-50.0) % BUN 22 H (9-20) mg/dL Glucose 105 H (74-99) mg/dL POC Glucose (mg/dL) 111 H (70-110) mg/dL Hemoglobin A1c (<=6.0) %
[2025-02-04 18:24] LABS: Glucose,Whole Blood 200 mg/dL (70-110)
[2025-02-04 20:57] LABS: Glucose,Whole Blood 323 mg/dL (70-110)
[2025-02-04] MEDS ORDERED: DEXTROSE 50% SYRINGE 50 ML IVP PRN ×2 (21:54)
[2025-02-04] MEDS: INSULIN LISPRO (HumaLOG) 100 UNIT/ML 10 mL VL SQ ONE (22:15)
[2025-02-05 02:18] LABS: Glucose,Whole Blood 116 mg/dL (70-110)
[2025-02-05 06:06] LABS: Glucose,Whole Blood 131 mg/dL (70-110)
[2025-02-05] MEDS: INSULIN LISPRO (HumaLOG) 100 UNIT/ML 10 mL VL SQ SCH (06:10)
[2025-02-05] MEDS: ACETAMINOPHEN TAB 325 MG TAB PO PRN (09:06)
--- NOTE | 2025-02-05 10:30 | XR ---
EXAMINATION TYPE: XR ribs LT DATE OF EXAM: 02/05/2025 10:07 AM COMPARISON: Chest x-ray 02/05/2025 CLINICAL INDICATION: Male, 79 years old with history of left sided rib tenderness recent fall, pain TECHNIQUE: 2 view(s) obtained. FINDINGS: No displaced rib fractures evident. No pneumothorax evident. No pneumothorax evident on these images. IMPRESSION: 1. No acute displaced fracture identified. Follow-up can be performed as clinically indicated. [facility], , 02/05/2025 10:28 AM
--- NOTE | 2025-02-05 10:58 | XR ---
EXAMINATION TYPE: XR chest 2V DATE OF EXAM: 02/05/2025 10:06 AM COMPARISON: None. CLINICAL INDICATION: Male, 79 years old with history of crackles in lung, TECHNIQUE: XR chest 2V view(s) obtained. FINDINGS: The heart size is normal. The pulmonary vasculature is normal. The lungs are clear. IMPRESSION: 1. No acute pulmonary process. [facility], , 02/05/2025 10:56 AM
[2025-02-05 11:16] LABS: Glucose,Whole Blood 248 mg/dL (70-110)
[2025-02-05 12:11] VITALS: BMI 22.4
--- NOTE | 2025-02-05 12:39 | P.PN ---
Subjective Progress Note Date: 02/05/25 79 year old M with PMH of DM on insulin, glaucoma, HLD, GERD presents to the ED after being found down. Unknown down time. Initially bystanders started CPR but was terminated when EMS arrived and noted patient was breathing and had a pulse. He was noted to have a blood glucose of 43 and was given 1 amp of D50 and sent to the ED for further evaluation. In the ED he underwent extensive evaluation. Tlow 93.6F, BP 189/110, HR 102, RR 18, 98% on RA. CBC, Coag panel, CMP significant for RBC 4.09, Hg 12.4, Hct 37.1, BUN 30, glu 69. Trop < 0.012. Mag 1.9. UA 2+ glucose. Patient currently denies any complaints. He denies any headache, LE edema, N/V, fever or chills, cough, chest pain, SOB, palpitations, changes in urination or bowel habits. No changes in appetite or weight. No dizziness, numbness/weakness/tinging of the extremities. CT brain remote R cerebella infarct. CT C-spine no acute pathology. CXR no acute pathology. EKG NSR with no ST T wave changes. Patient is admitted for further workup and management. 02/05 Patient was seen and examined. Doing well. POC glucose 111-325 over the past 24H. Started on low dose ISS and received 4 units so far. BCx prelim neg so far. General: no distress, appears at stated age Derm: warm, dry Head: atraumatic, normocephalic, symmetric Eyes: Pupils non reactive. Mouth: no lip lesion, mucus membranes moist Cardiovascular: S1 S2 reg. No murmur. Lungs: Decreased BS bilaterally, no accessory muscle use Ext: no gross muscle atrophy, no edema, no contractures Neuro: No focal neurologic deficits. Psych: Pleasantly confused. Based on my assessment of this patient, this patient meets a high complexity level of care. Acute metabolic encepalopathy likely due to below. DM with Hypoglycemia: Continue low dose ISS. DC Metformin and Actos. Accuchecks [id number]. Hypoglycemic precautions. Fall precautions. Neurochecks. A1c as above. PT and OT consult. SIRS: No signs of active infection. Likely due to above. BCx prelim neg. Hold antibiotics for now. Normocytic anemia: No signs of active bleeding. Recommend age appropriate CA screening. Glaucoma: Dorzolamide-Timolol eye drops. Latanoprost eye drops. HLD: Lipitor 20 mg PO QHS. GERD: Protonix 40 mg PO QD. Resolved: Prerenal azotemia Continue ISS + Accucheks [id number]. Mentation improving. PT and OT recommending SNF, case management on board. Anticipate DC when approved for SNF. CODE STATUS: FULL CODE DVT Prophylaxis: Lovenox. GI Prophylaxis: Protonix PO Designated medical POA if patient is not able to make medical decisions for themselves: I have reviewed the following client insights consultant notes: I have reviewed the results of the following tests: POC glucose, BCx. I have ordered the following tests: I have discussed the care of this patient with the following independent historian: Case management. I have independently interpreted the following test below: I have discussed the management of this patient with the following physician: Objective - Vital Signs Vital signs: Vital Signs Temp 97.6 F 02/05/25 08:00 Pulse 87 02/05/25 08:00 Resp 18 02/05/25 08:00 BP 158/84 02/05/25 08:00 Pulse Ox 99 02/05/25 08:00 FiO2 Intake & Output 02/04/25 02/05/25 02/05/25 18:59 06:59 18:59 Intake Total 10 356 Output Total 500 725 Balance -500 -715 356 Weight 70.7 kg 70.7 kg Intake: IV 10 Invasive Line 2 10 Oral 356 Output: Urine 500 725 Other: Voiding Method Urinal Urinal Urinal # Voids 2 # Bowel Movements 1 1 - Labs CBC & Chem 7: 02/04/25 05:38 02/04/25 05:38 Labs: Abnormal Lab Results - Last 24 Hours (Table) 02/04/25 02/04/25 02/05/25 Range/Units 18:22 20:56 02:17 POC Glucose (mg/dL) 200 H 323 H 116 H (70-110) mg/dL 02/05/25 02/05/25 Range/Units 06:02 11:15 POC Glucose (mg/dL) 131 H 248 H (70-110) mg/dL Microbiology - Last 24 Hours (Table) 02/03/25 16:46 Blood Culture - Preliminary Blood
[2025-02-05 16:14] LABS: Glucose,Whole Blood 263 mg/dL (70-110)
[2025-02-05 19:42] LABS: Glucose,Whole Blood 313 mg/dL (70-110)
[2025-02-05 20:08] LABS: Glucose,Whole Blood 307 mg/dL (70-110)
[2025-02-06 01:58] LABS: Glucose,Whole Blood 335 mg/dL (70-110)
[2025-02-06] MEDS: INSULIN LISPRO (HumaLOG) 100 UNIT/ML 10 mL VL SQ SCH (02:20)
[2025-02-06 03:49] VITALS: RESP 17
[2025-02-06 06:06] LABS: Glucose,Whole Blood 163 mg/dL (70-110)
[2025-02-06 08:03] LABS: Glucose,Whole Blood 198 mg/dL (70-110)
[2025-02-06 12:37] LABS: Glucose,Whole Blood 405 mg/dL (70-110)
[2025-02-06 12:48] VITALS: BP 181/84; PULSE 68; TEMP 97.5
--- NOTE | 2025-02-06 13:25 | P.DS ---
Providers Date of admission: 02/03/25 14:51 Expected date of discharge: 02/06/25 Attending physician: Navdeep Belle Primary care physician: Lui Hong [facility] Course: 79 year old M with PMH of DM on insulin, glaucoma, HLD, GERD presents to the ED after being found down. Unknown down time. Initially bystanders started CPR but was terminated when EMS arrived and noted patient was breathing and had a pulse. He was noted to have a blood glucose of 43 and was given 1 amp of D50 and sent to the ED for further evaluation. In the ED he underwent extensive evaluation. Tlow 93.6F, BP 189/110, HR 102, RR 18, 98% on RA. CBC, Coag panel, CMP significant for RBC 4.09, Hg 12.4, Hct 37.1, BUN 30, glu 69. Trop < 0.012. Mag 1.9. UA 2+ glucose. Patient currently denies any complaints. He denies any headache, LE edema, N/V, fever or chills, cough, chest pain, SOB, palpitations, changes in urination or bowel habits. No changes in appetite or weight. No dizziness, numbness/weakness/tinging of the extremities. CT brain remote R cerebella infarct. CT C-spine no acute pathology. CXR no acute pathology. EKG NSR with no ST T wave changes. Patient is admitted for further workup and management. Temperature normalized. SIRS resolved. BCx was negative. No antibiotics were used during this hospitalization. 02/05 Patient was seen and examined. Doing well. POC glucose 111-325 over the past 24H. Started on low dose ISS and received 4 units so far. BCx prelim neg so far. 02/06 Patient was seen and examined. Doing well. POC glucose 163-405 over the past 24H. Discussed with case management, patient lives at [facility] assisted winter ing. Patient will need supervision to make sure he is consuming 3 meals a day and frequently checking his blood sugars (upwards of 4 times a day). Apparently staff has been giving him insulin. Referral for home health will be placed as well. Discharge Plan: Plans to discharge home to [facility]. Insulin changes to Novolog 10 units TID. Recommend accuchecks QID for further titration of insulin. Start Lisinopril-HCTZ for isolated systolic HTN. Follow up with PCP within 1-2 days of discharge. General: no distress, appears at stated age Derm: warm, dry Head: atraumatic, normocephalic, symmetric Eyes: Pupils non reactive. Mouth: no lip lesion, mucus membranes moist Cardiovascular: S1 S2 reg. No murmur. Lungs: Decreased BS bilaterally, no accessory muscle use Ext: no gross muscle atrophy, no edema, no contractures Neuro: No focal neurologic deficits. Psych: Alert and oriented. Discharge Diagnosis: Acute metabolic encepalopathy likely due to below. DM with Hypoglycemia SIRS Normocytic anemia Glaucoma HLD GERD Resolved: Prerenal azotemia This complex discharge took 35 minutes to complete. Patient Condition at Discharge: Stable Plan - Discharge Summary Discharge Rx Participant: No New Discharge Prescriptions: New Docusate [Colace] 100 mg PO BID PRN cap PRN Reason: Constipation Continue Latanoprost [Latanoprost 0.005%] 1 drop BOTH EYES HS Atorvastatin [Lipitor] 20 mg PO HS Dorzolamide-Timol 2.23%/0.68% [Cosopt] 1 drop BOTH EYES BID metFORMIN HCL [Glucophage] 500 mg PO BID Pioglitazone [Actos] 15 mg PO DAILY Omeprazole 40 mg PO DAILY Changed Insulin Aspart [NovoLOG Flexpen] 10 units SQ AC-TID #0 Discontinued Insulin Aspart [NovoLOG Flexpen] 16 units SQ AC-SUPPER Discharge Medication List Atorvastatin [Lipitor] 20 mg PO HS 11/04/23 [History] Dorzolamide-Timol 2.23%/0.68% [Cosopt] 1 drop BOTH EYES BID 11/04/23 [History] Latanoprost [Latanoprost 0.005%] 1 drop BOTH EYES HS 11/04/23 [History] Omeprazole 40 mg PO DAILY 04/27/24 [History] Pioglitazone [Actos] 15 mg PO DAILY 04/27/24 [History] metFORMIN HCL [Glucophage] 500 mg PO BID 04/27/24 [History] Docusate [Colace] 100 mg PO BID PRN cap 02/06/25 [Rx] Insulin Aspart [NovoLOG Flexpen] 10 units SQ AC-TID #0 02/06/25 [Rx] Follow up Appointment(s)/Referral(s): Lui Trinidad MD [Primary Care Provider] - 1-2 days Yvan Cohen [NON-STAFF] - 1 Week Patient Instructions/Handouts: Hypoglycemia in a Person with Diabetes (DC), Acute Hypothermia (DC), Altered Mental Status (ED) Activity/Diet/Wound Care/Special Instructions: Diet: Diabetic Make sure you eat 3 meals a day. Check blood sugars 4 times a day. Do not give yourself insulin if blood glucose is less than 100. Discharge Disposition: HOME SELF-CARE
== END 2025-02-06 14:47 ==
LOC: EC 12:32 → 3SCARD 14:51 → OBSVTOIN 14:52 → INTOOBSV 14:52 → 3SCARD 18:29 → 5NMEDONC 02-06 07:42
PROVIDERS: ADMIT Student in an Organized Health Care Education/Training Program; ATTEND Student in an Organized Health Care Education/Training Program
DX: G93.41 Metabolic encephalopathy (principal); R65.10 Systemic inflammatory response syndrome (SIRS) of non-infectious origin without acute organ dysfunction; R68.0 Hypothermia, not associated with low environmental temperature; S00.83XA Contusion of other part of head, initial encounter; X58.XXXA Exposure to other specified factors, initial encounter; E11.649 Type 2 diabetes mellitus with hypoglycemia without coma; R79.89 Other specified abnormal findings of blood chemistry; D64.9 Anemia, unspecified; H40.9 Unspecified glaucoma; E78.5 Hyperlipidemia, unspecified; I10 Essential (primary) hypertension; K21.9 Gastro-esophageal reflux disease without esophagitis; Z79.4 Long term (current) use of insulin; Z79.84 Long term (current) use of oral hypoglycemic drugs; Z79.899 Other long term (current) drug therapy; Z88.0 Allergy status to penicillin
CPT/HCPCS: 96372 ×3; 96361 ×2; 96374; 99291; 36415; 93005; 97162; 97166; 80053; 80048; 83605; 83735; 84484; 85025 ×2; 85610; 85730; 81003; 87040; 83036; 71100; 71045; 71046; 72125; 70450; G0378 ×4; J1650 ×3

== ENCOUNTER 2025-03-14 17:14 | Inpatient (IN) | payer MEDICARE ==
[2025-03-14 17:31] LABS: Glucose,Whole Blood 81 mg/dL (70-110)
[2025-03-14] MEDS: DEXTROSE 50% SYRINGE 50 ML IVP STA (17:44)
[2025-03-14 17:48] LABS: Glucose,Whole Blood 50 mg/dL (70-110)
--- NOTE | 2025-03-14 17:53 | ED ---
Altered Mental Status HPI - General Chief Complaint: Altered Mental Status Stated Complaint: Low blood sugar Time Seen by Provider: 03/14/25 17:31 Source: patient Mode of arrival: EMS Limitations: no limitations - History of Present Illness Initial Comments: 79-year-old male with history of diabetes (insulin-dependent), hyperlipidemia, glaucoma, hypertension here for altered mental status. Patient is poor historian and no family at bedside thus history was taken from secondary data. Patient was found in his home by home health aide slumped on his chair and unresponsive which led them to call EMS. En route, blood glucose was 29 and an amp of D50 was given. Patient able to mention his name and where he is but unable to mention what happened to him and what led him to lose consciousness. No reported fall, trauma, nausea, vomiting diarrhea, bleeding, bruising, focal weakness on secondary data. - Related Data Home Medications Medication Instructions Recorded Confirmed Atorvastatin [Lipitor] 20 mg PO HS 11/04/23 03/14/25 Dorzolamide-Timol 2.23%/0.68% 1 drop BOTH EYES BID 11/04/23 03/14/25 [Cosopt] Latanoprost [Latanoprost 0.005%] 1 drop BOTH EYES HS 11/04/23 03/14/25 Omeprazole 40 mg PO DAILY 04/27/24 03/14/25 Pioglitazone [Actos] 15 mg PO DAILY 04/27/24 03/14/25 metFORMIN HCL [Glucophage] 500 mg PO BID 04/27/24 03/14/25 Previous Rx's Medication Instructions Recorded Docusate [Colace] 100 mg PO BID PRN cap 02/06/25 Insulin Aspart [NovoLOG Flexpen] 10 units SQ AC-TID #0 02/06/25 Lisinopril-Hctz 20-12.5 mg 1 tab PO DAILY #30 tab 02/06/25 [Zestoretic 20-12.5] Allergies Allergy/AdvReac Type Severity Reaction Status Date / Time Penicillins AdvReac Nausea & Verified 03/14/25 19:07 Vomiting Review of Systems ROS Statement: Those systems with pertinent positive or pertinent negative responses have been documented in the HPI. ROS Other: All systems not noted in ROS Statement are negative. Past Medical History Past Medical History: Diabetes Mellitus, Hyperlipidemia, Hypertension Additional Past Medical History / Comment(s): R eye blindness (2016), glaucoma History of Any Multi-Drug Resistant Organisms: None Reported Past Surgical History: No Surgical Hx Reported, Orthopedic Surgery Past Psychological History: No Psychological Hx Reported Smoking Status: Never smoker Past Alcohol Use History: None Reported Past Drug Use History: None Reported General Exam - General Exam Comments Initial Comments: Physical examination: Vital signs reviewed General: non toxic, no distress, appears at stated age, on room air Head: atraumatic, normocephalic, symmetric Eyes: EOMI, anicteric, anisocoric, left pupil +2, right pupil +4, PERRLA Mouth: no lip lesion, mucus membranes moist Cardiovascular: S1S2 reg, no murmur Lungs: CTA bilateral, no rhonchi, no rales, no accessory muscle use Abdominal: soft, nondistended, nontender to palpation, no guarding, BS appreciated Ext: muscle strength 5 out of 5 in all 4 extremities grossly, no gross muscle at rophy, no contractures, positive dorsalis pedis pulse bilateral, no edema Neuro: no gross focal neuro deficits Psych: Alert and oriented x1, appropriate affect and mood Limitations: no limitations Course Vital Signs 03/14/25 03/14/25 03/14/25 17:18 17:52 19:13 Temperature Pulse Rate 63 66 78 Pulse Rate [ Pulse Oximetery ] Respiratory 19 13 16 Rate Blood Pressure 183/80 171/83 150/87 Blood Pressure [Right Arm] O2 Sat by Pulse 99 96 97 Oximetry 03/14/25 03/14/25 03/14/25 20:00 23:00 23:23 Temperature 97.2 F L 97.8 F Pulse Rate 80 Pulse Rate [ Pulse Oximetery ] Respiratory 14 Rate Blood Pressure 150/87 Blood Pressure [Right Arm] O2 Sat by Pulse 95 Oximetry 03/14/25 03/15/25 23:37 00:27 Temperature 98.0 F 97.7 F Pulse Rate 86 Pulse Rate [ 80 Pulse Oximetery ] Respiratory 16 18 Rate Blood Pressure 141/88 Blood Pressure 151/77 [Right Arm] O2 Sat by Pulse 99 95 Oximetry Medical Decision Making - Medical Decision Making Was pt. sent in by a medical professional or institution (, PA, FULFILLMENT REPRESENTATIVE, urgent care, hospital, or correction...) When possible be specific @ -No Did you speak to anyone other than the patient for history (EMS, parent, family, police, friend...)? What history was obtained from this source @ -No Did you review nursing and triage notes (agree or disagree)? Why? @ -I reviewed and agree with nursing and triage notes Were old charts reviewed (outside hosp., previous admission, EMS record, old EKG, old radiological studies, urgent care reports/EKG's, correction records)? Report findings @ -old charts were reviewed Differential Diagnosis? @ -Differential Altered Mental Status: Hypoglycemia, DKA, hypercapnia, ETOH, overdose, CO poisoning, trauma, myxedema coma, HTN encephalopathy, infection, encephalitis, psychosis, intercranial hemorrhage, hepatic encephalopathy, meningitis, CVA, this is not meant to be an all-inclusive list EKG interpreted by me (3pts min.). @ -As above X-rays interpreted by me (1pt min.). @ -None done CT interpreted by me (1pt min.). @ -CT brain without contrast shows no acute process, bleed or ischemia U/S interpreted by me (1pt. min.). @ -None done What testing was considered but not performed or refused? (CT, X-rays, U/S, labs)? Why? @ -None What meds were considered but not given or refused? Why? @ -None Did you discuss the management of the patient with other professionals (professionals i.e. , PA, FULFILLMENT REPRESENTATIVE, lab, RT, psych nurse, public health social worker, border inspector, teacher, uniform patrol police officer, outpatient case manager)? Give summary @ -Dr. Long, supervising physician Was smoking cessation discussed for >3mins.? @ -No Was critical care preformed (if so, how long)? @ -[No] Were there social determinants of health that impacted care today? How? (Homelessness, low income, unemployed, alcoholism, drug addiction, transportation, low edu. Level, literacy, decrease access to med. care, halfway, rehab)? @ -[No] Was there de-escalation of care discussed even if they declined (Discuss DNR or withdrawal of care, Hospice)? DNR status @ -No What co-morbidities impacted this encounter? (DM, HTN, Smoking, COPD, CAD, Cancer, CVA, ARF, Chemo, Hep., AIDS, mental health diagnosis, sleep apnea, morbid obesity)? @ -Diabetes Was patient admitted / discharged? Hospital course, mention meds given and route, prescriptions, significant lab abnormalities, going to OR and other pertinent info. @ -Admitted. IV fluids D5 normal saline, amp of D50 ordered. CT brain without contrast ordered and showed no acute process. Labs were unremarkable except for low serum glucose. Persistently low POC glucose despite initiation of IV fluid and increasing hydration. Admitted to [facility] physicians Dr. Salgado which accepted this admission. Undiagnosed new problem with uncertain prognosis? @ -No Drug Therapy requiring intensive monitoring for toxicity (Heparin, Nitro, Insulin, Cardizem)? @ -No Were any procedures done? @ -No Diagnosis/symptom? @ -Default Acute, or Chronic, or Acute on Chronic? @ -Acute Uncomplicated (without systemic symptoms) or Complicated (systemic symptoms)? @ -Complicated Side effects of treatment? @ -No Exacerbation, Progression, or Severe Exacerbation? @ -No Poses a threat to life or bodily function? How? (Chest pain, [place], [place], pneumonia, PE, COPD, DKA, ARF, appy, cholecystitis, CVA, Diverticulitis, Homicidal, Suicidal, threat to staff... and all critical care pts) @ -Yes - Lab Data Result diagrams: 03/14/25 17:40 03/15/25 06:03 Lab Results 03/14/25 03/14/25 03/14/25 Range/Units 17:26 17:40 17:40 WBC 9.00 (4.50-10.00) 10*3/uL RBC 4.21 L (4.40-5.60) 10*6/uL Hgb 13.0 (13.0-17.0) g/dL Hct 39.1 L (39.6-50.0) % MCV 92.9 (80.0-97.0) fL MCH 30.9 (27.0-32.0) pg MCHC 33.2 (32.0-37.0) g/dL Plt Count 232 (140-440) 10*3/uL MPV 10.2 (9.5-12.2) fL Immature Gran % (Auto) 0.3 % Neutrophils % 71.9 % Lymphocytes % 14.0 % Monocytes % 10.4 % Eosinophils % 3.0 % Basophils % 0.4 % Immature Gran # 0.03 (0.00-0.04) 10*3/uL Neutrophils # 6.46 (1.80-7.70) 10*3/uL Lymphocytes # 1.26 (0.90-5.00) 10*3/uL Monocytes # 0.94 (0.20-1.00) 10*3/uL Eosinophils # 0.27 (0.04-0.35) 10*3/uL Basophils # 0.04 (0.00-0.10) 10*3/uL PT 10.5 (10.0-12.5) sec INR 0.9 (<1.2) APTT 22.5 (22.0-30.0) sec Sodium (137-145) mmol/L Potassium (3.5-5.1) mmol/L Chloride (98-107) mmol/L Carbon Dioxide (22-30) mmol/L Anion Gap mmol/L BUN (9-20) mg/dL Creatinine (0.66-1.25) mg/dL Est GFR (CKD-EPI)AfAm (>60 ml/min/1.73 sqM) Est GFR (CKD-EPI)NonAf (>60 ml/min/1.73 sqM) Glucose (74-99) mg/dL POC Glucose (mg/dL) 81 (70-110) mg/dL POC Glu [employer] ID Rigo Iglesias Calcium (8.4-10.2) mg/dL Total Bilirubin (0.2-1.3) mg/dL AST (17-59) U/L ALT (4-49) U/L Alkaline Phosphatase (38-126) U/L Troponin I (0.000-0.034) ng/mL Total Protein (6.3-8.2) g/dL Albumin (3.5-5.0) g/dL Urine Color Urine Appearance (Clear) Urine pH (5.0-8.0) Ur Specific [place] (1.001-1.035) Urine Protein (Negative) Urine Glucose (UA) (Negative) Urine Ketones (Negative) Urine Blood (Negative) Urine Nitrite (Negative) Urine Bilirubin (Negative) Urine Urobilinogen (<2.0) mg/dL Ur Leukocyte Esterase (Negative) Urine Opiates Screen (NotDetected) Ur Oxycodone Screen (NotDetected) Urine Methadone Screen (NotDetected) Ur Barbiturates Screen (NotDetected) U Tricyclic Antidepress (NotDetected) Ur Phencyclidine Scrn (NotDetected) Ur Amphetamines Screen (NotDetected) U Methamphetamines Scrn (NotDetected) U Benzodiazepines Scrn (NotDetected) Urine Cocaine Screen (NotDetected) U Marijuana (THC) Screen (NotDetected) Serum Alcohol mg/dL 03/14/25 03/14/25 03/14/25 Range/Units 17:40 17:40 17:42 WBC (4.50-10.00) 10*3/uL RBC (4.40-5.60) 10*6/uL Hgb (13.0-17.0) g/dL Hct (39.6-50.0) % MCV (80.0-97.0) fL MCH (27.0-32.0) pg MCHC (32.0-37.0) g/dL Plt Count (140-440) 10*3/uL MPV (9.5-12.2) fL Immature Gran % (Auto) % Neutrophils % % Lymphocytes % % Monocytes % % Eosinophils % % Basophils % % Immature Gran # (0.00-0.04) 10*3/uL Neutrophils # (1.80-7.70) 10*3/uL Lymphocytes # (0.90-5.00) 10*3/uL Monocytes # (0.20-1.00) 10*3/uL Eosinophils # (0.04-0.35) 10*3/uL Basophils # (0.00-0.10) 10*3/uL PT (10.0-12.5) sec INR (<1.2) APTT (22.0-30.0) sec Sodium 142 (137-145) mmol/L Potassium 4.5 (3.5-5.1) mmol/L Chloride 105 (98-107) mmol/L Carbon Dioxide 26 (22-30) mmol/L Anion Gap 11 mmol/L BUN 28 H (9-20) mg/dL Creatinine 0.97 (0.66-1.25) mg/dL Est GFR (CKD-EPI)AfAm 86 (>60 ml/min/1.73 sqM) Est GFR (CKD-EPI)NonAf 75 (>60 ml/min/1.73 sqM) Glucose 48 L* (74-99) mg/dL POC Glucose (mg/dL) 50 L (70-110) mg/dL POC Glu [employer] ID Rigo Iglesias Calcium 9.6 (8.4-10.2) mg/dL Total Bilirubin 0.7 (0.2-1.3) mg/dL AST 28 (17-59) U/L ALT 18 (4-49) U/L Alkaline Phosphatase 84 (38-126) U/L Troponin I <0.012 (0.000-0.034) ng/mL Total Protein 6.8 (6.3-8.2) g/dL Albumin 4.1 (3.5-5.0) g/dL Urine Color Urine Appearance (Clear) Urine pH (5.0-8.0) Ur Specific [place] (1.001-1.035) Urine Protein (Negative) Urine Glucose (UA) (Negative) Urine Ketones (Negative) Urine Blood (Negative) Urine Nitrite (Negative) Urine Bilirubin (Negative) Urine Urobilinogen (<2.0) mg/dL Ur Leukocyte Esterase (Negative) Urine Opiates Screen (NotDetected) Ur Oxycodone Screen (NotDetected) Urine Methadone Screen (NotDetected) Ur Barbiturates Screen (NotDetected) U Tricyclic Antidepress (NotDetected) Ur Phencyclidine Scrn (NotDetected) Ur Amphetamines Screen (NotDetected) U Methamphetamines Scrn (NotDetected) U Benzodiazepines Scrn (NotDetected) Urine Cocaine Screen (NotDetected) U Marijuana (THC) Screen (NotDetected) Serum Alcohol <10 mg/dL 03/14/25 03/14/25 03/14/25 Range/Units 18:08 18:45 19:16 WBC (4.50-10.00) 10*3/uL RBC (4.40-5.60) 10*6/uL Hgb (13.0-17.0) g/dL Hct (39.6-50.0) % MCV (80.0-97.0) fL MCH (27.0-32.0) pg MCHC (32.0-37.0) g/dL Plt Count (140-440) 10*3/uL MPV (9.5-12.2) fL Immature Gran % (Auto) % Neutrophils % % Lymphocytes % % Monocytes % % Eosinophils % % Basophils % % Immature Gran # (0.00-0.04) 10*3/uL Neutrophils # (1.80-7.70) 10*3/uL Lymphocytes # (0.90-5.00) 10*3/uL Monocytes # (0.20-1.00) 10*3/uL Eosinophils # (0.04-0.35) 10*3/uL Basophils # (0.00-0.10) 10*3/uL PT (10.0-12.5) sec INR (<1.2) APTT (22.0-30.0) sec Sodium (137-145) mmol/L Potassium (3.5-5.1) mmol/L Chloride (98-107) mmol/L Carbon Dioxide (22-30) mmol/L Anion Gap mmol/L BUN (9-20) mg/dL Creatinine (0.66-1.25) mg/dL Est GFR (CKD-EPI)AfAm (>60 ml/min/1.73 sqM) Est GFR (CKD-EPI)NonAf (>60 ml/min/1.73 sqM) Glucose (74-99) mg/dL POC Glucose (mg/dL) 108 83 83 (70-110) mg/dL POC Glu [employer] ID Hollywood Hernandez Mccauleyterminoo MerinoJaja Hollywood Hernandez Calcium (8.4-10.2) mg/dL Total Bilirubin (0.2-1.3) mg/dL AST (17-59) U/L ALT (4-49) U/L Alkaline Phosphatase (38-126) U/L Troponin I (0.000-0.034) ng/mL Total Protein (6.3-8.2) g/dL Albumin (3.5-5.0) g/dL Urine Color Urine Appearance (Clear) Urine pH (5.0-8.0) Ur Specific [place] (1.001-1.035) Urine Protein (Negative) Urine Glucose (UA) (Negative) Urine Ketones (Negative) Urine Blood (Negative) Urine Nitrite (Negative) Urine Bilirubin (Negative) Urine Urobilinogen (<2.0) mg/dL Ur Leukocyte Esterase (Negative) Urine Opiates Screen (NotDetected) Ur Oxycodone Screen (NotDetected) Urine Methadone Screen (NotDetected) Ur Barbiturates Screen (NotDetected) U Tricyclic Antidepress (NotDetected) Ur Phencyclidine Scrn (NotDetected) Ur Amphetamines Screen (NotDetected) U Methamphetamines Scrn (NotDetected) U Benzodiazepines Scrn (NotDetected) Urine Cocaine Screen (NotDetected) U Marijuana (THC) Screen (NotDetected) Serum Alcohol mg/dL 03/14/25 03/14/25 03/14/25 Range/Units 20:01 20:35 20:35 WBC (4.50-10.00) 10*3/uL RBC (4.40-5.60) 10*6/uL Hgb (13.0-17.0) g/dL Hct (39.6-50.0) % MCV (80.0-97.0) fL MCH (27.0-32.0) pg MCHC (32.0-37.0) g/dL Plt Count (140-440) 10*3/uL MPV (9.5-12.2) fL Immature Gran % (Auto) % Neutrophils % % Lymphocytes % % Monocytes % % Eosinophils % % Basophils % % Immature Gran # (0.00-0.04) 10*3/uL Neutrophils # (1.80-7.70) 10*3/uL Lymphocytes # (0.90-5.00) 10*3/uL Monocytes # (0.20-1.00) 10*3/uL Eosinophils # (0.04-0.35) 10*3/uL Basophils # (0.00-0.10) 10*3/uL PT (10.0-12.5) sec INR (<1.2) APTT (22.0-30.0) sec Sodium (137-145) mmol/L Potassium (3.5-5.1) mmol/L Chloride (98-107) mmol/L Carbon Dioxide (22-30) mmol/L Anion Gap mmol/L BUN (9-20) mg/dL Creatinine (0.66-1.25) mg/dL Est GFR (CKD-EPI)AfAm (>60 ml/min/1.73 sqM) Est GFR (CKD-EPI)NonAf (>60 ml/min/1.73 sqM) Glucose (74-99) mg/dL POC Glucose (mg/dL) 78 84 (70-110) mg/dL POC Glu [employer] ID Bertrand Waller Hollywood Hernandez Calcium (8.4-10.2) mg/dL Total Bilirubin (0.2-1.3) mg/dL AST (17-59) U/L ALT (4-49) U/L Alkaline Phosphatase (38-126) U/L Troponin I (0.000-0.034) ng/mL Total Protein (6.3-8.2) g/dL Albumin (3.5-5.0) g/dL Urine Color Colorless Urine Appearance Clear (Clear) Urine pH 6.5 (5.0-8.0) Ur Specific [place] 1.007 (1.001-1.035) Urine Protein Negative (Negative) Urine Glucose (UA) 1+ H (Negative) Urine Ketones Negative (Negative) Urine Blood Negative (Negative) Urine Nitrite Negative (Negative) Urine Bilirubin Negative (Negative) Urine Urobilinogen <2.0 (<2.0) mg/dL Ur Leukocyte Esterase Negative (Negative) Urine Opiates Screen Not Detected (NotDetected) Ur Oxycodone Screen Not Detected (NotDetected) Urine Methadone Screen Not Detected (NotDetected) Ur Barbiturates Screen Not Detected (NotDetected) U Tricyclic Antidepress Not Detected (NotDetected) Ur Phencyclidine Scrn Not Detected (NotDetected) Ur Amphetamines Screen Not Detected (NotDetected) U Methamphetamines Scrn Not Detected (NotDetected) U Benzodiazepines Scrn Not Detected (NotDetected) Urine Cocaine Screen Not Detected (NotDetected) U Marijuana (THC) Screen Not Detected (NotDetected) Serum Alcohol mg/dL 03/14/25 Range/Units 21:25 WBC (4.50-10.00) 10*3/uL RBC (4.40-5.60) 10*6/uL Hgb (13.0-17.0) g/dL Hct (39.6-50.0) % MCV (80.0-97.0) fL MCH (27.0-32.0) pg MCHC (32.0-37.0) g/dL Plt Count (140-440) 10*3/uL MPV (9.5-12.2) fL Immature Gran % (Auto) % Neutrophils % % Lymphocytes % % Monocytes % % Eosinophils % % Basophils % % Immature Gran # (0.00-0.04) 10*3/uL Neutrophils # (1.80-7.70) 10*3/uL Lymphocytes # (0.90-5.00) 10*3/uL Monocytes # (0.20-1.00) 10*3/uL Eosinophils # (0.04-0.35) 10*3/uL Basophils # (0.00-0.10) 10*3/uL PT (10.0-12.5) sec INR (<1.2) APTT (22.0-30.0) sec Sodium (137-145) mmol/L Potassium (3.5-5.1) mmol/L Chloride (98-107) mmol/L Carbon Dioxide (22-30) mmol/L Anion Gap mmol/L BUN (9-20) mg/dL Creatinine (0.66-1.25) mg/dL Est GFR (CKD-EPI)AfAm (>60 ml/min/1.73 sqM) Est GFR (CKD-EPI)NonAf (>60 ml/min/1.73 sqM) Glucose (74-99) mg/dL POC Glucose (mg/dL) 83 (70-110) mg/dL POC Glu [employer] ID Hollywood Hernandez Calcium (8.4-10.2) mg/dL Total Bilirubin (0.2-1.3) mg/dL AST (17-59) U/L ALT (4-49) U/L Alkaline Phosphatase (38-126) U/L Troponin I (0.000-0.034) ng/mL Total Protein (6.3-8.2) g/dL Albumin (3.5-5.0) g/dL Urine Color Urine Appearance (Clear) Urine pH (5.0-8.0) Ur Specific [place] (1.001-1.035) Urine Protein (Negative) Urine Glucose (UA) (Negative) Urine Ketones (Negative) Urine Blood (Negative) Urine Nitrite (Negative) Urine Bilirubin (Negative) Urine Urobilinogen (<2.0) mg/dL Ur Leukocyte Esterase (Negative) Urine Opiates Screen (NotDetected) Ur Oxycodone Screen (NotDetected) Urine Methadone Screen (NotDetected) Ur Barbiturates Screen (NotDetected) U Tricyclic Antidepress (NotDetected) Ur Phencyclidine Scrn (NotDetected) Ur Amphetamines Screen (NotDetected) U Methamphetamines Scrn (NotDetected) U Benzodiazepines Scrn (NotDetected) Urine Cocaine Screen (NotDetected) U Marijuana (THC) Screen (NotDetected) Serum Alcohol mg/dL - EKG Data EKG Comments: Sinus rhythm with a rate of 67, left axis deviation, QRS duration 105 MS, no ST- T changes, no PVCs noted Disposition Clinical Impression: Hypoglycemia associated with diabetes Disposition: ADMITTED IP TO THIS HOSP Condition: Serious Time of Disposition: 21:51
[2025-03-14 17:55] LABS: Basophils # (A) 0.04 10*3/uL (0.00-0.10); Basophils % (A) 0.4 %; Eosinophils # (A) 0.27 10*3/uL (0.04-0.35); Eosinophils % (A) 3.0 %; HCT 39.1 % (39.6-50.0); HGB 13.0 g/dL (13.0-17.0); Lymphocytes # (A) 1.26 10*3/uL (0.90-5.00); Lymphocytes % (A) 14.0 %; MCH 30.9 pg (27.0-32.0); MCHC 33.2 g/dL (32.0-37.0); MCV 92.9 fL (80.0-97.0); Monocytes # (A) 0.94 10*3/uL (0.20-1.00); Monocytes % (A) 10.4 %; Neutrophils # (A) 6.46 10*3/uL (1.80-7.70); Neutrophils % (A) 71.9 %; Platelet Count 232 10*3/uL (140-440); RBC 4.21 10*6/uL (4.40-5.60); RDW 13.2 % (11.5-14.5); WBC 9.00 10*3/uL (4.50-10.00)
[2025-03-14 18:03] LABS: INR 0.9 (<1.2); Partial Thromboplastin Time 22.5 sec (22.0-30.0); Prothrombin Time 10.5 sec (10.0-12.5)
[2025-03-14 18:05] LABS: ALT 18 U/L (4-49); AST 28 U/L (17-59); African American GFR (CKD) 86 (>60 ml/min/1.73 sqM); Albumin 4.1 g/dL (3.5-5.0); Alkaline Phosphatase 84 U/L (38-126); Anion Gap 11 mmol/L; Blood Urea Nitrogen 28 mg/dL (9-20); Calcium 9.6 mg/dL (8.4-10.2); Carbon Dioxide 26 mmol/L (22-30); Chloride 105 mmol/L (98-107); Non-African American GFR(CKD) 75 (>60 ml/min/1.73 sqM); Potassium 4.5 mmol/L (3.5-5.1); Sodium 142 mmol/L (137-145); Total Protein 6.8 g/dL (6.3-8.2)
[2025-03-14 18:19] LABS: Glucose,Whole Blood 108 mg/dL (70-110)
[2025-03-14] MEDS: DEXTROSE 10% IN WATER 1,000 ML with SODIUM CHLORIDE 4MEQ/ML VIAL 153.8 MEQ IV SCH (18:20)
[2025-03-14 18:25] LABS: Glucose 48 mg/dL (74-99)
[2025-03-14 18:47] LABS: Glucose,Whole Blood 83 mg/dL (70-110)
[2025-03-14 19:18] LABS: Glucose,Whole Blood 83 mg/dL (70-110)
[2025-03-14 20:03] LABS: Glucose,Whole Blood 78 mg/dL (70-110)
--- NOTE | 2025-03-14 20:11 | CT ---
EXAMINATION TYPE: CT brain wo con DATE OF EXAM: 03/14/2025 7:55 PM COMPARISON: Previous CT study dated 02/03/2025.. CLINICAL INDICATION: Male, 79 years old with history of altered mental status, AMS, pt found unrespon sive in chair TECHNIQUE: Brain: Axial CT images of the brain were obtained with coronal and sagittal reformats created and rev iewed. Contrast used: None. Oral contrast used: None. CT DLP: 1086 mGycm, Automated exposure control for dose reduction was used. FINDINGS: Brain: Extra-axial spaces: No abnormal extra-axial fluid collections. Ventricular system: Dilatation in proportion to cerebral atrophy. Cerebral parenchyma: No acute intraparenchymal hemorrhage or mass effect. Scattered hypoattenuating areas are seen within the white matter. Cerebellum: Unremarkable. Mass effect: No evidence of midline shift. Intracranial vasculature: Atherosclerotic calcifications of the intracranial vessels. Soft tissues: Normal. Calvarium/osseous structures: No depressed skull fracture. Paranasal sinuses and mastoid air cells: Near complete opacification of the left maxillary sinus with air-fluid levels. Mucosal retention cyst in the left sphenoid sinus. Visualized orbits: Orbital cont ents are intact. IMPRESSION: 1. No acute intracranial process. 2. Complete opacification of the left maxillary sinus with air-fluid level suggesting acute etiology . [facility], , 03/14/2025 8:09 PM
[2025-03-14 20:37] LABS: Glucose,Whole Blood 84 mg/dL (70-110)
[2025-03-14 20:57] LABS: Bilirubin,Urine Negative (Negative); Blood,Urine Negative (Negative); Color,Urine Colorless; Glucose,Urine (UA) 1+ (Negative); Ketones,Urine Negative (Negative); Leukocyte Esterase,Urine Negative (Negative); Nitrite,Urine Negative (Negative); PH, Urine 6.5 (5.0-8.0); Protein,Urine Negative (Negative); Specific Gravity,Urine 1.007 (1.001-1.035); Urobilinogen,Urine <2.0 mg/dL (<2.0)
[2025-03-14 21:26] LABS: Glucose,Whole Blood 83 mg/dL (70-110)
[2025-03-14 21:47] LABS: Barbiturate Screen,Urine Not Detected (NotDetected); Benzodiazepines Screen,Urine Not Detected (NotDetected); Opiate Screen,Urine Not Detected (NotDetected); Oxycodone Screen, Urine Not Detected (NotDetected); Phencyclidine Screen,Urine Not Detected (NotDetected); Tricyclic Antidepressant,Urine Not Detected (NotDetected); Urn Cannabinoid Scrn Not Detected (NotDetected)
[2025-03-14] MEDS ORDERED: NALOXONE 0.4 MG/ML 1 ML VIAL IV PRN (22:00)
[2025-03-14] MEDS: OCTREOTIDE 100 MCG/ML INJ IVP ONE (22:45)
[2025-03-14 22:49] LABS: Glucose,Whole Blood 107 mg/dL (70-110)
--- NOTE | 2025-03-14 23:25 | P.HPIM ---
History of Present Illness H&P Date: 03/14/25 Chief Complaint: Altered mental status Patient is a 79-year-old male with a PMH of : - Diabetes mellitus on insulin - Glaucoma - Primary hypertension - Hyperlipidemia - GERD - Previous episode of hypoglycemia Presented to the ED by EMS for altered mental status. Patient is a poor historian, and history as per chart review. Patient was found on the floor in his home by home health aide who called EMS. His blood sugar was 29 at the time, and EMS gave him D50 inj. by the time he got to the ED, his blood sugar went up to 49. In the ED, he was given D50 inj and octreotide, and started on D10 in NS IV fluid. When examined at bedside, patient was alert, and oriented x 3. Glucose levels about 80. Patient stated that this happened to him few times before and he was hospitalized for hypoglycemia in 01/2025. Patient also stated that he lives alone at home. Patient endorsed compliance with his triple therapy for his diabetes mellitus (Actos 15 mg QD, metformin 500 mg BID, insulin aspart 10 units ACTID). However, patient stated that he injects 24 units of insulin TID. Today, patient stated that he had only 1 meal today at breakfast, but he still t ook his medications as prescribed, and he injected himself with insulin 3 times. Patient denied chest pain, shortness of breath, headache, tremors, weakness, leg swelling, abdominal pain, nausea, vomiting, fever. Patient mentioned that he falls frequently at home. He fell twice this week, but he denied hitting his head, headaches, bleeding, change in vision. Imaging: Brain CT 03/14 1. No acute intracranial process 2. Complete opacification of the left maxillary sinus with air-fluid level smith ggesting acute etiology. Labs: Glucose 48 in ED WBC 9, Hgb 13, HCT 39.1, plt count 232 Na 142, K 4.5, Cl 105, CO2 26, BUN 28, Cr 0.97, GFR 86 Vitals T 97.2, HR 63, RR 19, BP 183/80, O2 sat 99% on RA ED documentation reviewed. Review of systems: Pertinent positives and negatives as discussed in HPI, a complete review of systems was performed and all other systems are negative. Physical examination: Vital signs reviewed General: non toxic, no distress, appears at stated age. Derm: no unusual rashes/lesions, warm Head: atraumatic, normocephalic, Eyes: EOMI, anicteric sclera, pupils equal round ENT: Nose and ears atraumatic Neck: supple Mouth: no lip lesion Cardiovascular: S1S2 reg, no murmur, no edema Lungs: CTA bilateral, no rhonchi, no rales, no accessory muscle use Abdominal: soft, nontender to palpation, no guarding Ext: muscle strength 5 out of 5 in all 4 extremities grossly, no gross muscle atrophy Neuro: CN II-XI grossly intact, no gross focal neuro deficits Psych: Alert, oriented to person, place, and time Assessment/Plan: #. Acute metabolic encephalopathy secondary to hypoglycemia #. Hypoglycemic episode possibly secondary to insulin overdose #. History of hospitalization for hypoglycemic episode and 01/2025 - Glucose 29 by EMS, and 49 in the ED - Last HbA1c 11.1 in 01/2025 - Possibly secondary to insulin overdose - pt stated injecting 24U AC TID and instead of 10U - Follow hypoglycemia protocol - Monitor glucose levels closely - Keep on D10 and normal saline IV fluid - Hold home medications: Actos, metformin, insulin - Check insulin, proinsulin, C-peptide levels to rule out insulinoma - Fall precautions #. Malnutrition - Consult dietary to optimize patient's diet #. Primary hypertension - resume Lisinopril-HCTZ home dose #. Hyperlipidemia - resume Atorvastatin 20 mg daily #. Glucoma - resume home meds #. GERD - resume protonix 40 mg daily DVT prophylaxis: Lovenox 40 mg The patient is admitted with an anticipated less than 2 midnight stay for evaluation of Altered mental status CODE STATUS: full code Discussed with: Dr. Salgado Anticipated discharge place: To be determined Rose Crespo MD PGY-1 IM Dictation was produced using PT PAL dictation software. please excuse any grammatical, word or spelling errors. I have seen and evaluated the patient today. I Discussed the case with the resident and agree with the resident's findings I edited the assessment and plan as necessary as documented in the resident's note. Past Medical History Past Medical History: Diabetes Mellitus, Hyperlipidemia, Hypertension Additional Past Medical History / Comment(s): R eye blindness (2016), glaucoma History of Any Multi-Drug Resistant Organisms: None Reported Past Surgical History: No Surgical Hx Reported, Orthopedic Surgery Past Psychological History: No Psychological Hx Reported Smoking Status: Never smoker Past Alcohol Use History: None Reported Past Drug Use History: None Reported Medications and Allergies Home Medications Medication Instructions Recorded Confirmed Type Atorvastatin [Lipitor] 20 mg PO HS 11/04/23 03/14/25 History Dorzolamide-Timol 2.23%/0.68% 1 drop BOTH EYES BID 11/04/23 03/14/25 History [Cosopt] Latanoprost [Latanoprost 0.005%] 1 drop BOTH EYES HS 11/04/23 03/14/25 History Omeprazole 40 mg PO DAILY 04/27/24 03/14/25 History Pioglitazone [Actos] 15 mg PO DAILY 04/27/24 03/14/25 History metFORMIN HCL [Glucophage] 500 mg PO BID 04/27/24 03/14/25 History Docusate [Colace] 100 mg PO BID PRN cap 02/06/25 03/14/25 Rx Insulin Aspart [NovoLOG Flexpen] 10 units SQ AC-TID #0 02/06/25 03/14/25 Rx Lisinopril-Hctz 20-12.5 mg 1 tab PO DAILY #30 tab 02/06/25 03/14/25 Rx [Zestoretic 20-12.5] Allergies Allergy/AdvReac Type Severity Reaction Status Date / Time Penicillins AdvReac Nausea & Verified 03/14/25 19:07 Vomiting Physical Exam Vitals: Vital Signs Temp Pulse Resp BP Pulse Ox 03/14/25 23:00 80 14 150/87 95 03/14/25 20:00 97.2 F L 03/14/25 19:13 78 16 150/87 97 03/14/25 17:52 66 13 171/83 96 03/14/25 17:18 63 19 183/80 99 Intake and Output 03/14/25 03/14/25 03/15/25 14:59 22:59 06:59 Other: Weight 68.039 kg Results CBC & Chem 7: 03/14/25 17:40 03/14/25 17:40 Labs: Abnormal Lab Results - Last 24 Hours (Table) 03/14/25 03/14/25 03/14/25 Range/Units 17:40 17:40 17:42 RBC 4.21 L (4.40-5.60) 10*6/uL Hct 39.1 L (39.6-50.0) % BUN 28 H (9-20) mg/dL Glucose 48 L* (74-99) mg/dL POC Glucose (mg/dL) 50 L (70-110) mg/dL Urine Glucose (UA) (Negative) 03/14/25 Range/Units 20:35 RBC (4.40-5.60) 10*6/uL Hct (39.6-50.0) % BUN (9-20) mg/dL Glucose (74-99) mg/dL POC Glucose (mg/dL) (70-110) mg/dL Urine Glucose (UA) 1+ H (Negative)
[2025-03-14] MEDS ORDERED: DOCUSATE 100 MG CAP PO PRN (23:29)
[2025-03-15] MEDS: ENOXAPARIN 40 MG/0.4 ML SYRINGE SQ STA (00:32)
[2025-03-15 00:54] LABS: Glucose,Whole Blood 97 mg/dL (70-110)
[2025-03-15 02:03] LABS: Glucose,Whole Blood 97 mg/dL (70-110)
[2025-03-15 04:01] LABS: Glucose,Whole Blood 122 mg/dL (70-110)
[2025-03-15 05:58] LABS: Glucose,Whole Blood 132 mg/dL (70-110)
[2025-03-15 06:51] LABS: ALT 16 U/L (4-49); AST 20 U/L (17-59); African American GFR (CKD) 89 (>60 ml/min/1.73 sqM); Albumin 3.2 g/dL (3.5-5.0); Alkaline Phosphatase 65 U/L (38-126); Anion Gap 7 mmol/L; Blood Urea Nitrogen 21 mg/dL (9-20); Calcium 9.1 mg/dL (8.4-10.2); Carbon Dioxide 30 mmol/L (22-30); Chloride 105 mmol/L (98-107); Glucose 130 mg/dL (74-99); Non-African American GFR(CKD) 77 (>60 ml/min/1.73 sqM); Potassium 4.4 mmol/L (3.5-5.1); Sodium 142 mmol/L (137-145); Total Protein 5.4 g/dL (6.3-8.2)
[2025-03-15 08:01] LABS: Glucose,Whole Blood 157 mg/dL (70-110)
[2025-03-15] MEDS: PANTOPRAZOLE 40 MG TABLET PO SCH (08:03)
[2025-03-15] MEDS: DEXTROSE 5% IN WATER 1,000 ML IV SCH (08:44)
[2025-03-15] MEDS: LISINOPRIL-HCTZ 20-12.5 MG 1 EACH TAB PO SCH (08:44)
[2025-03-15] MEDS: DORZOLAMIDE-TIMOLOL 2.23%/0.68 10ML BTL BOTH EYES SCH (08:44)
--- NOTE | 2025-03-15 09:20 | P.PN ---
Subjective Progress Note Date: 03/15/25 Hospital Course: 79-year-old male with past medical history of HLD, HTN, insulin-dependent diab etes mellitus, GERD, glaucoma, who presented to the ER on 03/14/2025 for AMS. Patient is a poor historian, and history as per chart review. Patient was found on the floor in his home by home health aide who called EMS. His blood sugar was 29 at the time, and EMS gave him D50 inj. by the time he got to the ED, his blood sugar went up to 49. In the ED, he was given D50 inj and octreotide, and started on D10 in NS IV fluid. When examined at bedside, patient was alert, and oriented x 3. Glucose levels about 80. Patient stated that this happened to him few times before and he was hospitalized for hypoglycemia in 01/2025. Patient also stated that he lives alone at home. Patient endorsed compliance with his triple therapy for his diabetes mellitus (Actos 15 mg QD, metformin 500 mg BID, insulin aspart 10 units ACTID). However, patient stated that he injects 24 units of insulin TID. Toda y, patient stated that he had only 1 meal today at breakfast, but he still took his medications as prescribed, and he injected himself with insulin [address] times. CT head showed no acute process, glucose was 48, CBC unremarkable, CMP unremarkable, UA negative for UTI, UDS negative. Patient was admitted for further management of acute metabolic encephalopathy secondary to hypoglycemia secondary to insulin overdose. 03/15: Patient was seen and examined at bedside, no active complaints, he has good appetite. He was oriented to self, place, but not remember the year. Discussed with REHAB TECH, blood sugars are WNL, oral intake increased, will switch to D5 at 75 cc/h and continue to do our Accu-Cheks x 1 or 2 and transition to ACHS. He is afebrile with stable heart rate in the 80s, normotensive, on room air. POC glucose overnight between 80s and 100s, now going up to 150s. Patient needs to be seen by social work, dietitian, likely will benefit from 24/7 supervision Pertinent positives and negatives as discussed above, a complete review of systems was performed and all other systems are negative. Vitals Signs Reviewed. General: [nontoxic], [no distress], [appears at stated age] Derm: [warm], [dry] Head: [atraumatic], [normocephalic], [symmetric] Eyes: [EOMI], [no lid lag], [anicteric sclera] Mouth: [no lip lesion], [mucus membranes moist] Cardiovascular: [S1S2 reg], [no murmur] Lungs: [CTA bilateral], [no rhonchi, no rales] , [no accessory muscle use] Abdominal: [soft], [ nontender to palpation], [no guarding], [no appreciable organomegaly] Ext: [no gross muscle atrophy], [no edema], [no contractures] Neuro: [ CN II-XI grossly intact], [no focal neuro deficits] Psych: [Alert], [oriented to self, place, time but not year Assessment and Plan: Acute metabolic encephalopathy secondary to hypoglycemia Hypoglycemia secondary to insulin overdose, unintentional -A1c was 11.1 in January 2025 Was hospitalized in January for hypoglycemic episode, his insulin was lowered to 10 units 3 times daily, however patient injected 24 units AC 3 times daily, his TSH was 1.17 in December 2024 -Continue hypoglycemia precautions, Accu-Cheks as above, sliding scale insulin, low intensity - Switch IVF to D5 at 75 cc/h, patient is on regular diet - Continue holding home Actos, metformin, insulin - Insulin, proinsulin, C-peptide levels pending - Case management, RD, PT OT consulted - Recheck BMP in the morning Hypertension: Continue home lisinopril/Hydrocort thiazide 20/12.5 daily GERD: Continue home Protonix 40 mg p.o. daily HLD: Continue home atorvastatin 20 mg daily Glaucoma: Continue latanoprost 1 drop both eyes nightly, Cosopt 1 drop both eyes twice daily DVT ppx: Lovenox Code status: Full code Anticipated discharge place: D Anticipated discharge time: 24 to 48 hours Objective - Vital Signs Vital signs: Vital Signs Temp 97.8 F 03/15/25 04:00 Pulse 84 03/15/25 04:00 Resp 16 03/15/25 04:00 BP 131/72 03/15/25 04:00 Pulse Ox 99 03/15/25 04:00 FiO2 Intake & Output 03/14/25 03/15/25 03/15/25 18:59 06:59 18:59 Intake Total 890 Output Total 300 Balance 590 Weight 68.039 kg 75 kg Intake: Oral 890 Output: Urine 300 Other: Voiding Method Urinal # Voids 1 1 # Bowel Movements 1 - Labs CBC & Chem 7: 03/14/25 17:40 03/15/25 06:03 Labs: Abnormal Lab Results - Last 24 Hours (Table) 03/14/25 03/14/25 03/14/25 Range/Units 17:40 17:40 17:42 RBC 4.21 L (4.40-5.60) 10*6/uL Hct 39.1 L (39.6-50.0) % BUN 28 H (9-20) mg/dL Glucose 48 L* (74-99) mg/dL POC Glucose (mg/dL) 50 L (70-110) mg/dL Total Protein (6.3-8.2) g/dL Albumin (3.5-5.0) g/dL Urine Glucose (UA) (Negative) 03/14/25 03/15/25 03/15/25 Range/Units 20:35 04:00 05:57 RBC (4.40-5.60) 10*6/uL Hct (39.6-50.0) % BUN (9-20) mg/dL Glucose (74-99) mg/dL POC Glucose (mg/dL) 122 H 132 H (70-110) mg/dL Total Protein (6.3-8.2) g/dL Albumin (3.5-5.0) g/dL Urine Glucose (UA) 1+ H (Negative) 03/15/25 03/15/25 Range/Units 06:03 07:59 RBC (4.40-5.60) 10*6/uL Hct (39.6-50.0) % BUN 21 H (9-20) mg/dL Glucose 130 H (74-99) mg/dL POC Glucose (mg/dL) 157 H (70-110) mg/dL Total Protein 5.4 L (6.3-8.2) g/dL Albumin 3.2 L (3.5-5.0) g/dL Urine Glucose (UA) (Negative)
[2025-03-15 10:03] LABS: Glucose,Whole Blood 240 mg/dL (70-110)
[2025-03-15] MEDS: INSULIN LISPRO (HumaLOG) 100 UNIT/ML 10 mL VL SQ PRN (10:09)
[2025-03-15 11:19] LABS: Glucose,Whole Blood 189 mg/dL (70-110)
[2025-03-15 16:16] LABS: Glucose,Whole Blood 258 mg/dL (70-110)
[2025-03-15 20:02] LABS: Glucose,Whole Blood 240 mg/dL (70-110)
[2025-03-15] MEDS: ATORVASTATIN 20 MG TAB PO SCH (20:16)
[2025-03-15] MEDS: LATANOPROST 0.005% OPHTH DROPS 2.5 ML BTL BOTH EYES SCH (20:16)
[2025-03-15 22:34] LABS: Glucose,Whole Blood 191 mg/dL (70-110)
[2025-03-16 00:02] LABS: Glucose,Whole Blood 223 mg/dL (70-110)
[2025-03-16 05:19] LABS: Basophils # (A) 0.03 10*3/uL (0.00-0.10); Basophils % (A) 0.5 %; Eosinophils # (A) 0.21 10*3/uL (0.04-0.35); Eosinophils % (A) 3.4 %; HCT 35.4 % (39.6-50.0); HGB 11.9 g/dL (13.0-17.0); Lymphocytes # (A) 1.60 10*3/uL (0.90-5.00); Lymphocytes % (A) 25.8 %; MCH 31.0 pg (27.0-32.0); MCHC 33.6 g/dL (32.0-37.0); MCV 92.2 fL (80.0-97.0); Monocytes # (A) 0.74 10*3/uL (0.20-1.00); Monocytes % (A) 12.0 %; Neutrophils # (A) 3.60 10*3/uL (1.80-7.70); Neutrophils % (A) 58.1 %; Platelet Count 219 10*3/uL (140-440); RBC 3.84 10*6/uL (4.40-5.60); RDW 13.2 % (11.5-14.5); WBC 6.19 10*3/uL (4.50-10.00)
[2025-03-16 05:41] LABS: African American GFR (CKD) 78 (>60 ml/min/1.73 sqM); Anion Gap 10 mmol/L; Blood Urea Nitrogen 22 mg/dL (9-20); Calcium 9.5 mg/dL (8.4-10.2); Carbon Dioxide 26 mmol/L (22-30); Chloride 103 mmol/L (98-107); Glucose 183 mg/dL (74-99); Non-African American GFR(CKD) 68 (>60 ml/min/1.73 sqM); Potassium 4.2 mmol/L (3.5-5.1); Sodium 139 mmol/L (137-145)
[2025-03-16 05:58] LABS: Glucose,Whole Blood 263 mg/dL (70-110)
[2025-03-16] MEDS ORDERED: DEXTROSE 50% SYRINGE 50 ML IVP PRN ×4 (09:54→09:55)
[2025-03-16 11:29] LABS: Glucose,Whole Blood 246 mg/dL (70-110)
[2025-03-16] MEDS: INSULIN LISPRO (HumaLOG) 100 UNIT/ML 10 mL VL SQ SCH (12:30)
[2025-03-16 12:33] VITALS: BMI 22.4
--- NOTE | 2025-03-16 12:44 | P.PN ---
Subjective Progress Note Date: 03/16/25 79 year old M with PMH of DM on insulin, glaucoma, HLD, GERD presents to the ED after being found down. He was noted to have a blood glucose of 29 and was given 1 amp of D50, Octerotide and sent to the ED for further evaluation. In the ED he underwent extensive evaluation. T 97.2F, BP 183/80, HR 63, RR 19, 99% on RA. CBC, Coag panel, CMP significant for RBC 4.21, Hct 39.1, BUN 28, glu 48. Trop < 0.012. UA 1+ glucose. CT brain neg. EKG NSR with no ST T wave changes. Patient is admitted for further workup and management. 03/16 Patient was seen and examined. Doing quite well. CBC and CMP significant fo r WBC 3.84, Hg 11.9, Hct 35.4, BUN 22, glu 183. Insulin level < 0.4. C-peptide 0.24. General: no distress, appears at stated age Derm: warm, dry Head: atraumatic, normocephalic, symmetric Eyes: Pupils non reactive. Mouth: no lip lesion, mucus membranes moist Cardiovascular: S1 S2 reg. No murmur. Lungs: Decreased BS bilaterally, no accessory muscle use Ext: no gross muscle atrophy, no edema, no contractures Neuro: No focal neurologic deficits. Psych: Pleasantly confused. Based on my assessment of this patient, this patient meets a high complexity level of care. Acute metabolic encepalopathy likely due to below. DM with Hypoglycemia: Start ISS. DC Metformin and Actos. Accuchecks [id number]. Hy poglycemic precautions. Fall precautions. PT and OT consult. Normocytic anemia: No signs of active bleeding. Recommend age appropriate CA screening. Glaucoma: Dorzolamide-Timolol eye drops. Latanoprost eye drops. HLD: Lipitor 20 mg PO QHS. GERD: Protonix 40 mg PO QD. HTN: Lisinopril-HCTZ 20-12.5 mg PO QD. Monitor blood glucose. Mentation improving. PT and OT consulted recommending SNF. CODE STATUS: FULL CODE DVT Prophylaxis: Lovenox. GI Prophylaxis: Protonix PO Designated medical POA if patient is not able to make medical decisions for themselves: I have reviewed the following marketing consultant notes: I have reviewed the results of the following tests: As above. I have ordered the following tests: I have discussed the care of this patient with the following independent historian: Case management. I have independently interpreted the following test below: I have discussed the management of this patient with the following physician: Objective - Vital Signs Vital signs: Vital Signs Temp 97.4 F L 03/16/25 11:39 Pulse 69 03/16/25 11:39 Resp 16 03/16/25 11:39 BP 157/78 03/16/25 11:39 Pulse Ox 97 03/16/25 11:39 FiO2 Intake & Output 03/15/25 03/16/25 03/16/25 18:59 06:59 18:59 Intake Total 1850 240 Output Total 300 Balance 1550 240 Weight 75 kg 75 kg Intake: Oral 1850 240 Output: Urine 300 Other: Voiding Method Toilet Toilet Urinal Urinal # Voids 1 3 2 # Bowel Movements 1 1 - Labs CBC & Chem 7: 03/16/25 04:22 03/16/25 04:22 Labs: Abnormal Lab Results - Last 24 Hours (Table) 03/15/25 03/15/25 03/15/25 Range/Units 06:03 16:15 20:01 RBC (4.40-5.60) 10*6/uL Hgb (13.0-17.0) g/dL Hct (39.6-50.0) % BUN (9-20) mg/dL Glucose (74-99) mg/dL POC Glucose (mg/dL) 258 H 240 H (70-110) mg/dL C-Peptide 0.24 L (0.81-3.85) ng/mL 03/15/25 03/16/25 03/16/25 Range/Units 22:32 00:01 04:22 RBC 3.84 L (4.40-5.60) 10*6/uL Hgb 11.9 L (13.0-17.0) g/dL Hct 35.4 L (39.6-50.0) % BUN (9-20) mg/dL Glucose (74-99) mg/dL POC Glucose (mg/dL) 191 H 223 H (70-110) mg/dL C-Peptide (0.81-3.85) ng/mL 03/16/25 03/16/25 03/16/25 Range/Units 04:22 05:56 11:27 RBC (4.40-5.60) 10*6/uL Hgb (13.0-17.0) g/dL Hct (39.6-50.0) % BUN 22 H (9-20) mg/dL Glucose 183 H (74-99) mg/dL POC Glucose (mg/dL) 263 H 246 H (70-110) mg/dL C-Peptide (0.81-3.85) ng/mL
[2025-03-16 16:26] LABS: Glucose,Whole Blood 232 mg/dL (70-110)
--- NOTE | 2025-03-16 18:52 | CDI ---
Documentation Clarification Form Date: 03/16/2025 06:31:38 PM From: Radha Schmitt RN CDIS Phone: [phone] Admit Date: 03/14/2025 09:37:00 PM Patient Name: Shin Still Visit Number: [id number] Discharge Date: ATTENTION: The Clinical Documentation Specialists (CDI) and [facility] Coding Staff appreciate your assistance in clarifying documentation. Please respond to the clarification below the line at the bottom and electronically sign. The CDI & [facility] Coding staff will review the response and follow-up if needed. Please note: Queries are made part of the Legal Health Record. If you have any questions, please contact the author of this message via ITS. Doctor: Mirela Du Malnutrition is documented 03/14, HP. Additional clarification regarding the severity of malnutrition is requested. History/Risk Factors: 79 year old male presents to the ED with altered mental status, blood glucose at home 29. . Medial History: DM2, Was hopspitalized January 2025 for hypoglycemia and a few times before that, HTN, Glaucoma and GERD. 03/14, hp. Clinical Indicators: RD Consult Assessment: Current BMI: 22.4 Hgt 6ft; Wgt 75kg. Calculated Loman Body weight 89.9kg. Usual weight 77.111kg; Weight loss 2.27kg unkown time frame of weight loss 3%, Physical findings: moderate/ severe muscle/fat wasting 03/15 03/16 Lunch, Dinner diet tolerated well independent 100t% consumed 03/15 HS Snack Refused Treatment: Monitoring po intake and Supplement intake, Diabetic consistent carb diet for insulin dependent DM2. Supplements: Glucerna BID Chocolate BID, Please clarify the severity of malnutrition, if known: [ ] Moderate Protein-Calorie Malnutrition [ x ] Severe Protein Calorie Malnutrition. [ ] Malnutrition, unknown severity [ ] Other condition, please specify [ ] Unable to Determine Reference: Using the ASPEN Guidelines, Undernutrition (Malnutrition) is characterized by at least two of the following six findings. The severity can be determined based on the criteria listed below. Acute Illness Characteristics: Moderate protein calorie malnutrition (acute illness) Energy intake <75% for >7 days Weight Loss 1-2% in one week, 5% in 1 month, 7.5% in 3 months Mild loss of body fat, muscle mass, fluid accumulation Severe protein calorie malnutrition (acute illness) Energy intake = 50% for = 5 days Weight Loss >2% in one week, >5% in 1 month, >7.5% in 3 months Moderate loss of body fat, muscle mass, fluid accumulation Reduced hand safety deposit clerk strength Chronic Illness Characteristics: Moderate protein calorie malnutrition (chronic illness) Energy intake <75% for = 1 month Weight Loss 5% in one month, 7.5% in 3 months, 10% in 6 months, 20% in 1 year Mild loss of body fat, muscle mass, fluid accumulation Severe protein calorie malnutrition (chronic illness) Energy intake =75% for = 1 month Weight Loss >5% in one month, >7.5% in 3 months, >10% in 6 months, >20% in 1 year Severe loss of body fat, muscle mass, fluid accumulation Reduced hand safety deposit clerk strength (Template Last Revised: February 2023) MTDD
[2025-03-16 20:00] VITALS: TEMP 97.5
[2025-03-16 20:02] LABS: Glucose,Whole Blood 333 mg/dL (70-110)
[2025-03-17 06:04] LABS: Glucose,Whole Blood 179 mg/dL (70-110)
[2025-03-17] MEDS: ENOXAPARIN 40 MG/0.4 ML SYRINGE SQ SCH (09:07)
[2025-03-17 10:01] VITALS: RESP 18
--- NOTE | 2025-03-17 11:01 | P.DS ---
Providers Date of admission: 03/14/25 21:37 Expected date of discharge: 03/17/25 Attending physician: Carmen Salgado MD Primary care physician: Lui [facility] Hospital Course: 79 year old M with PMH of DM on insulin, glaucoma, HLD, GERD presents to the ED after being found down. He was noted to have a blood glucose of 29 and was given 1 amp of D50, Octerotide and sent to the ED for further evaluation. In the ED he underwent extensive evaluation. T 97.2F, BP 183/80, HR 63, RR 19, 99% on RA. CBC, Coag panel, CMP significant for RBC 4.21, Hct 39.1, BUN 28, glu 48. Trop < 0.012. UA 1+ glucose. CT brain neg. EKG NSR with no ST T wave changes. Patient is admitted for further workup and management. 03/16 Patient was seen and examined. Doing quite well. CBC and CMP significant for WBC 3.84, Hg 11.9, Hct 35.4, BUN 22, glu 183. Insulin level < 0.4. C-peptide 0.24. 03/17 Patient was seen and examined. POC glucose ranging from 179-333 over the past 24H. 9 units of insulin over the sliding scale. PT and OT recommending SNF, accepted to [facility]. Discharge Plan: Start Levemir 15 units QHS + Novolog 5 units TID with meals. Further adjustments with PCP. Advised to consume 3 meals a day. Check blood glucose 4 times a day. General: no distress, appears at stated age Derm: warm, dry Head: atraumatic, normocephalic, symmetric Eyes: Pupils non reactive. Mouth: no lip lesion, mucus membranes moist Cardiovascular: S1 S2 reg. No murmur. Lungs: Decreased BS bilaterally, no accessory muscle use Ext: no gross muscle atrophy, no edema, no contractures Neuro: No focal neurologic deficits. Psych: Pleasantly confused. Discharge Diagnosis: Acute metabolic encepalopathy likely due to below DM with Hypoglycemia Normocytic anemia Glaucoma HLD GERD HTN This complex discharge took 35 minutes to complete. Patient Condition at Discharge: Stable Plan - Discharge Summary New Discharge Prescriptions: New INSULIN LISPRO (HumaLOG) [HumaLOG] 5 unit SQ AC-TID each Insulin Glargine (Lantus) [Lantus Vial] 15 unit SQ HS each Continue Latanoprost [Latanoprost 0.005%] 1 drop BOTH EYES HS Lisinopril-Hctz 20-12.5 mg [Zestoretic 20-12.5] 1 tab PO DAILY #30 tab Atorvastatin [Lipitor] 20 mg PO HS Dorzolamide-Timol 2.23%/0.68% [Cosopt] 1 drop BOTH EYES BID metFORMIN HCL [Glucophage] 500 mg PO BID Omeprazole 40 mg PO DAILY Docusate [Colace] 100 mg PO BID PRN cap PRN Reason: Constipation Discontinued Pioglitazone [Actos] 15 mg PO DAILY Insulin Aspart [NovoLOG Flexpen] 10 units SQ AC-TID #0 Discharge Medication List Atorvastatin [Lipitor] 20 mg PO HS 11/04/23 [History] Dorzolamide-Timol 2.23%/0.68% [Cosopt] 1 drop BOTH EYES BID 11/04/23 [History] Latanoprost [Latanoprost 0.005%] 1 drop BOTH EYES HS 11/04/23 [History] Omeprazole 40 mg PO DAILY 04/27/24 [History] metFORMIN HCL [Glucophage] 500 mg PO BID 04/27/24 [History] Docusate [Colace] 100 mg PO BID PRN cap 02/06/25 [Rx] Lisinopril-Hctz 20-12.5 mg [Zestoretic 20-12.5] 1 tab PO DAILY #30 tab 02/06/25 [Rx] INSULIN LISPRO (HumaLOG) [HumaLOG] 5 unit SQ AC-TID each 03/17/25 [Rx] Insulin Glargine (Lantus) [Lantus Vial] 15 unit SQ HS each 03/17/25 [Rx] Follow up Appointment(s)/Referral(s): Liu Trinidad MD [Primary Care Provider] - 1-2 days Activity/Diet/Wound Care/Special Instructions: Eat 3 meals a day. Check blood sugar three times a day prior to meals and at bedtime. Follow up with PCP for further adjustments. Discharge Disposition: HOME SELF-CARE
[2025-03-17 11:41] LABS: Glucose,Whole Blood 333 mg/dL (70-110)
[2025-03-17] MEDS: INSULIN LISPRO (HumaLOG) 100 UNIT/ML 10 mL VL SQ SCH (12:06)
[2025-03-17 12:50] VITALS: BP 125/78; PULSE 82
[2025-03-17] MEDS ORDERED: INSULIN GLARGINE (LANTUS) 100 UNIT/ML SYR SQ SCH (21:00)
== END 2025-03-17 14:30 | DRG 917 ==
LOC: EC 17:14 → 5NMEDONC 21:37 → 3SCARD 03-15 00:36
PROVIDERS: ADMIT Internal Medicine; ATTEND Internal Medicine
DX: T38.3X1A Poisoning by insulin and oral hypoglycemic [antidiabetic] drugs, accidental (unintentional), initial encounter (principal); E43 Unspecified severe protein-calorie malnutrition; G93.41 Metabolic encephalopathy; E11.649 Type 2 diabetes mellitus with hypoglycemia without coma; E78.5 Hyperlipidemia, unspecified; D64.9 Anemia, unspecified; I10 Essential (primary) hypertension; Z79.4 Long term (current) use of insulin; Z68.22 Body mass index [BMI] 22.0-22.9, adult; H40.9 Unspecified glaucoma; H54.61 Unqualified visual loss, right eye, normal vision left eye; K21.9 Gastro-esophageal reflux disease without esophagitis; R29.6 Repeated falls; Z79.84 Long term (current) use of oral hypoglycemic drugs; Z79.899 Other long term (current) drug therapy; Y92.038 Other place in apartment as the place of occurrence of the external cause
CPT/HCPCS: 36415; 70450; 80048; 80053; 80306; 80320; 81003; 83525; 84206; 84484; 84681; 85025; 85610; 85730; 93005